=== PATIENT | female | born 1965 | race American Indian/Alaskan Native ===

== ENCOUNTER 2016-05-07 18:36 | Emergency (ER) | payer OTHER ==
[2016-05-07 18:55] VITALS: BP 153/90
[2016-05-07] MEDS ORDERED: ASPIRIN PO ONE (18:57)
--- NOTE | 2016-05-07 19:02 | Emergency Department Report ---
Chief Complaint: Chest Pain Stated Complaint: CHEST PAIN - HPI History of Present Illness: Complaining of intermittent substernal chest pain for the past 3-1/2 hours. Patient relates positive cardiac history. - Exam Vital Signs: Vital Signs 05/07/16 18:51 Temperature 98.3 F Pulse Rate 68 Respiratory 18 Rate Blood Pressure 153/90 O2 Sat by Pulse 100 Oximetry MSE screening note: Focused history and physical exam performed. Due to findings the following was ordered: ED Disposition for MSE Condition: Stable
[2016-05-07 19:46] LABS: Basophils % (Auto) 1.1 % (0.0-1.8); Eosinophils % (Auto) 1.7 % (0.0-4.3); Hematocrit 37.1 % (30.3-42.9); Hemoglobin 12.2 gm/dl (10.1-14.3); Mean Corpuscular HGB Conc 33 % (30-34); Mean Corpuscular Hemoglobin 29 pg (28-32); Mean Corpuscular Volume 87 fl (79-97); Platelet Count 300 K/mm3 (140-440); Red Blood Count 4.29 M/mm3 (3.65-5.03); Red Cell Distribution Width 14.7 % (13.2-15.2); White Blood Count 8.4 K/mm3 (4.5-11.0)
[2016-05-07 19:55] LABS: INR 0.9 (0.87-1.13)
[2016-05-07 20:07] LABS: Creatine Kinase MB 4.2 ng/mL (0.0-4.0)
[2016-05-07 20:08] LABS: Alanine Aminotransferase 15 units/L (7-56); Albumin 4.1 g/dL (3.9-5); Albumin/Globulin Ratio 1.1 %; Alkaline Phosphatase 89 units/L (35-129); Anion Gap 16 mmol/L; BUN/Creatinine Ratio 21.11; Bilirubin,Total 0.2 mg/dL (0.1-1.2); Blood Urea Nitrogen 19 mg/dL (7-17); Calcium 9.6 mg/dL (8.4-10.2); Carbon Dioxide 25 mmol/L (22-30); Chloride 101.5 mmol/L (98-107); Creatine Kinase 261 units/L (30-135); Glucose 86 mg/dL (65-100); Lipase 21 units/L (13-60); Potassium 4.3 mmol/L (3.6-5.0); Sodium 138 mmol/L (137-145); Total Protein 7.8 g/dL (6.3-8.2)
[2016-05-07 20:51] LABS: Bilirubin,Direct < 0.2 mg/dL (0-0.2)
--- NOTE | 2016-05-08 02:06 | Emergency Department Report ---
ED Chest Pain HPI - General Chief Complaint: Chest Pain Stated Complaint: CHEST PAIN Time Seen by Provider: 05/08/16 01:42 Source: patient, EMS Mode of arrival: Ambulatory Limitations: No Limitations - History of Present Illness Initial Comments: This is a 50-year-old Afro-[place] female presents to the emergency department with a complaint of lower midsternal nonradiating chest pain. The pain is been going on since and March intermittently. She went to see her primary care doctor, Dr. Barrientos, but did not get any resolution. He sent her to see a brake adjuster and she was placed on a Holter monitor that she wore from April 13 2 April 24 and she has a follow-up coming this Saturday. It is associated with some shortness of breath and she has felt "clammy" but she denies any nausea, vomiting, back pain, diaphoresis. No recent travel or sick contacts at home. She denies any history of DC, CVA, PE/DVT. She does have a past medical history of asthma and gastric ulcers. Patient is a tobacco smoker. She took an aspirin at work earlier today for symptoms prior to presentation. Severity scale (0 -10): 5 - Related Data Home Medications Medication Instructions Recorded Confirmed Last Taken buPROPion [Wellbutrin] 150 mg PO DAILY 01/09/13 02/20/15 02/19/15 traZODone [Desyrel] 50 mg PO PRN PRN 01/09/13 02/20/15 02/17/15 Buspirone HCl [busPIRone] 15 mg PO BID 02/20/15 02/20/15 02/19/15 Previous Rx's Medication Instructions Recorded Last Taken Type Naproxen [Naprosyn TAB] 500 mg PO BID PRN #30 tablet 02/20/15 Unknown Rx ALBUTEROL Inhaler [ProAir HFA 2 puff IH QID PRN #1 inhalation 09/11/15 Unknown Rx Inhaler] predniSONE [Deltasone] 20 mg PO QDAY #5 tab 09/11/15 Unknown Rx Allergies Allergy/AdvReac Type Severity Reaction Status Date / Time peanut Allergy Rash Verified 08/04/14 08:11 shellfish derived Allergy Hives Verified 08/04/14 08:11 Sulfa (Sulfonamide Allergy Rash Verified 08/04/14 08:11 Antibiotics) NATIVIDAD score - Natividad Score Age > 65: (0) No Aspirin use within the Past 7 Days: (0) No 3 or more CAD Risk Factors: (0) No 2 or more Angina events in past 24 hrs: (1) Yes Known CAD with more than 50% Stenosis: (0) No Elevated Cardiac Markers: (0) No ST Deviation Greater than 0.5mm: (0) No NATIVIDAD Score: 1 ED Review of Systems ROS: Stated complaint: CHEST PAIN Other details as noted in HPI Comment: All other systems reviewed and negative Constitutional: denies: chills, fever Eyes: denies: eye pain, eye discharge, vision change ENT: denies: ear pain, throat pain Respiratory: shortness of breath. denies: cough Cardiovascular: chest pain. denies: edema Gastrointestinal: denies: abdominal pain, nausea, diarrhea Genitourinary: denies: urgency, dysuria, discharge Musculoskeletal: denies: back pain, joint swelling, arthralgia Skin: denies: rash, lesions Neurological: denies: headache, weakness, paresthesias ED Past Medical Hx - Past Medical History Previous Medical History?: Yes Hx Psychiatric Treatment: Yes (depression and anxiety) Hx Asthma: Yes Additional medical history: ulcers, recovering addict - Surgical History Past Surgical History?: Yes Additional Surgical History: Bilateral hand surgery, right ankle surgery, C4-5 fusion, x1, LEFT SHOULDER, - Social History Smoking Status: Current Every Day Smoker Substance Use Type: Prescribed - Medications Home Medications: Home Medications Medication Instructions Recorded Confirmed Last Taken Type buPROPion [Wellbutrin] 150 mg PO DAILY 01/09/13 02/20/15 02/19/15 History traZODone [Desyrel] 50 mg PO PRN PRN 01/09/13 02/20/15 02/17/15 History Buspirone HCl [busPIRone] 15 mg PO BID 02/20/15 02/20/15 02/19/15 History Naproxen [Naprosyn TAB] 500 mg PO BID PRN #30 tablet 02/20/15 Unknown Rx ALBUTEROL Inhaler [ProAir HFA 2 puff IH QID PRN #1 inhalation 09/11/15 Unknown Rx Inhaler] predniSONE [Deltasone] 20 mg PO QDAY #5 tab 09/11/15 Unknown Rx ED Physical Exam - General Limitations: No Limitations - Other Other exam information: GENERAL: The patient is well-developed well-nourished. HEENT: Normocephalic. Atraumatic. Extraocular motions are intact. Patient has moist mucous membranes. Pupils equal reactive to light bilaterally. NECK: Supple. Trachea is mid line. CHEST/LUNGS: Clear to auscultation. There is no respiratory distress noted. Midsternal chest pain is reproducible to palpation chest wall. HEART/CARDIOVASCULAR: Regular. There is no tachycardia. There is no gallop rub or murmur. ABDOMEN: Abdomen is soft, nontender. Patient has normal bowel sounds. There is no abdominal distention. SKIN: Skin is warm and dry. NEURO: The patient is awake, alert, and oriented. The patient is cooperative. The patient has no focal neurologic deficits. The patient has normal speech and gait. Cranial nerves II through XII grossly intact. MUSCULOSKELETAL: There is no tenderness or deformity. There is no limitation range of motion. There is no evidence of acute injury. ED Course Vital Signs 05/07/16 05/08/16 18:51 01:42 Temperature 98.3 F Pulse Rate 68 Respiratory 18 18 Rate Blood Pressure 153/90 O2 Sat by Pulse 100 100 Oximetry ED Medical Decision Making - Lab Data Result diagrams: 05/07/16 19:24 05/07/16 19:24 - EKG Data -: EKG Interpreted by Me EKG shows normal: sinus rhythm (with sinus arrhythmia), axis, intervals, QRS complexes, ST-T waves Rate: normal - EKG Data When compared to previous EKG there are: previous EKG unavailable Interpretation: normal EKG - Radiology Data Radiology results: image reviewed interpreted by me: Chest x-ray did not show any acute process. Heart is normal shape and size. No effusions. No pneumothorax. No signs of pneumonia seen. - Medical Decision Making This is a 50-year-old female presents to the emergency department with some chronic chest discomfort. Patient's EKG does not show any signs of ST elevation DC, ischemia or dysrhythmia. Chest x-ray does not show any acute process. Patient's labs of thus far show negative troponins 2 and a negative d -dimer. No signs of infection. Patient is feeling better and asking for discharge home. However prior to this, the patient was asking for something for pain. A Adams was written for the patient. The patient was told what the medication was and took the medication orally. However afterwards, she mentions that she has a history of previous drug addiction. While the patient says that she does not plan to go and find any further drugs like she did in the past, I recommended and offered to give the patient Narcan to block the opiate effects. Patient refused this. Patient also wanted to leave but did not have a responsible democrat to make sure she got home. For this reason I asked the patient to stay in the emergency department for a few hours or be given Narcan. The patient set up to get a ride from the emergency department and would be met at the door of her apartment by someone else to make sure that she got and safely. Patient was wheeled out to the car and safely placed within the car. However the patient did sign out AGAINST MEDICAL ADVICE as she was told that there could be side effects of sedation from the narcotic pain medication she was given in the emergency department. Patient understands and still signed out AMA. She has an appointment with her brake adjuster on Saturday but I encouraged her to try and call and see if she could get in later today. She'll return to the ER with any return of her chest discomfort or any acute distress. - Differential Diagnosis DC, costochondritis, GERD, pneumonia Critical Care Time: No Critical care attestation.: If time is entered above; I have spent that time in minutes in the direct care of this critically ill patient, excluding procedure time. ED Disposition Clinical Impression: Chest pain Qualifiers: Chest pain type: unspecified Qualified Code(s): R07.9 - Chest pain, unspecified Disposition: LEFT AGAINST MEDICAL ADVICE Is pt being admited?: No Condition: Stable Instructions: Chest Pain (ED) Additional Instructions: Please follow-up with your brake adjuster later today. Return to the emergency department with any worsening of her symptoms or any acute distress. Referrals: PRIMARY CARE, [Primary Care Provider] - 3-5 Days Forms: Work/School Release Form(ED) Time of Disposition: 03:42
[2016-05-08] MEDS ORDERED: NORCO 5/325 PO ONE (02:52)
[2016-05-08 03:08] LABS: Bacteria,Urine 1+ /HPF (Negative); Bilirubin,Urine NEG (Negative); Blood,Urine NEG (Negative); Ketones,Urine NEG (Negative); Leukocyte Esterase,Urine TR (Negative); Mucus,Urine FEW /HPF; Nitrite,Urine NEG (Negative); Protein,Urine <15 mg/dL mg/dL (Negative); Urobilinogen,Urine < 2.0 mg/dL (<2.0)
--- NOTE | 2016-05-08 08:43 | XRay Report ---
CHEST ONE VIEW INDICATION: Chest pain. History of asthma and slight heart murmur. COMPARISON: 09/11/2015. FINDINGS: Portable, single, frontal chest radiograph demonstrates normal cardiomediastinal silhouette. Clear lungs. Lower cervical fusion hardware partially imaged. CONCLUSION: No acute disease in the chest, stable. Thank you for the opportunity to participate in this patient's care.
== END 2016-05-08 03:48 | disposition left against medical advice (07) ==
LOC: ED 18:36
DX: R07.9 Chest pain, unspecified (principal); F32.9 Major depressive disorder, single episode, unspecified; F41.9 Anxiety disorder, unspecified; J45.909 Unspecified asthma, uncomplicated; F17.200 Nicotine dependence, unspecified, uncomplicated; Z91.010 Allergy to peanuts; Z91.013 Allergy to seafood; Z88.2 Allergy status to sulfonamides
CPT/HCPCS: 36415; 71010; 80053; 80074; 80162; 81001; 82550; 82553; 83690; 84484; 85025; 85379; 85610; 93005; 93010; 99285

== ENCOUNTER 2016-06-10 09:07 | Emergency (ER) | payer OTHER ==
[2016-06-10 09:24] VITALS: BP 125/58
[2016-06-10] MEDS ORDERED: TYLENOL #3 PO ONE (09:54)
[2016-06-10] MEDS ORDERED: DUONEB 0.5 MG-3 MG/3 ML SOLN IH ONE (09:54)
[2016-06-10] MEDS ORDERED: PROVENTIL IH ONE (10:34)
--- NOTE | 2016-06-10 11:59 | Emergency Department Report ---
Entered by MIGUEL SUGGS, acting as scribe for ANGELLA ANGEL PA. ED General Adult HPI - General Chief complaint: Adult Asthma Stated complaint: ASTHMA/COUGHING Time Seen by Provider: 06/10/16 09:48 Source: patient Mode of arrival: Ambulatory Limitations: No Limitations - History of Present Illness Initial comments: 50 y/o female with PMHx asthma presents to ED c/o cough since 4 days ago. Despite administering albuterol MDI at home, pt experienced no relief. Pt endorses tobacco usage. Pt reports associated rhinorrhea and sore throat described as itching in quality secondary to coughing, with left ear pain since 2 days ago. She denies fever, nausea, vomiting, but reports chills. 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 She notes recent new prescription of a Beta Bethany on , with exacerbation of her asthma since. No additional complaints. MD Complaint: asthma exacerbation Onset/Timin -: days(s) Consistency: constant Improves with: none Worsens with: other (pollen, dust) Associated Symptoms: fever/chills (reports chills, denies fever) Treatments Prior to Arrival: other (albuterol metered dose inhaler) - Related Data Home Medications Medication Instructions Recorded Confirmed Last Taken buPROPion [Wellbutrin] 150 mg PO DAILY 01/09/13 02/20/15 02/19/15 traZODone [Desyrel] 50 mg PO PRN PRN 01/09/13 02/20/15 02/17/15 Buspirone HCl [busPIRone] 15 mg PO BID 02/20/15 02/20/15 02/19/15 Previous Rx's Medication Instructions Recorded Last Taken Type Naproxen [Naprosyn TAB] 500 mg PO BID PRN #30 tablet 02/20/15 Unknown Rx ALBUTEROL Inhaler [ProAir HFA 2 puff IH QID PRN #1 inhalation 06/10/16 Unknown Rx Inhaler] Albuterol Sulfate [Albuterol 0.63% 0.63 mg IH TID PRN #1 box 06/10/16 Unknown Rx NEBS] predniSONE [Deltasone] 20 mg PO QDAY #5 tab 06/10/16 Unknown Rx Allergies Allergy/AdvReac Type Severity Reaction Status Date / Time peanut Allergy Rash Verified 08/04/14 08:11 shellfish derived Allergy Hives Verified 08/04/14 08:11 Sulfa (Sulfonamide Allergy Rash Verified 08/04/14 08:11 Antibiotics) ED Review of Systems Comment: All other systems reviewed and negative Constitutional: chills. denies: fever ENT: ear pain (left), throat pain (sore throat) Respiratory: cough, shortness of breath, wheezing Gastrointestinal: denies: nausea, vomiting ED Past Medical Hx - Past Medical History Previous Medical History?: Yes Hx Psychiatric Treatment: Yes (depression and anxiety) Hx Asthma: Yes Additional medical history: ulcers, recovering addict, palpitations - Surgical History Past Surgical History?: Yes Additional Surgical History: Bilateral hand surgery, right ankle surgery, C4-5 fusion, x1, LEFT SHOULDER, - Social History Smoking Status: Current Every Day Smoker Substance Use Type: Prescribed - Medications Home Medications: Home Medications Medication Instructions Recorded Confirmed Last Taken Type buPROPion [Wellbutrin] 150 mg PO DAILY 01/09/13 02/20/15 02/19/15 History traZODone [Desyrel] 50 mg PO PRN PRN 01/09/13 02/20/15 02/17/15 History Buspirone HCl [busPIRone] 15 mg PO BID 02/20/15 02/20/15 02/19/15 History Naproxen [Naprosyn TAB] 500 mg PO BID PRN #30 tablet 02/20/15 Unknown Rx ALBUTEROL Inhaler [ProAir HFA 2 puff IH QID PRN #1 inhalation 06/10/16 Unknown Rx Inhaler] Albuterol Sulfate [Albuterol 0.63% 0.63 mg IH TID PRN #1 box 06/10/16 Unknown Rx NEBS] predniSONE [Deltasone] 20 mg PO QDAY #5 tab 06/10/16 Unknown Rx ED Physical Exam - General Limitations: No Limitations - Other Other exam information: GENERAL: Patient is alert and oriented x 3. No apparent distress, normal gait, atraumatic. HEAD: Head is normocephalic and atraumatic. EYES: Extraocular movements are intact. Pupils are equal, round, and reactive to light and accommodation. EARS: Symmetrical, atraumatic, non tender, ear canal clear with moderate cerumen , tympanic membrane non inflamed. Gross auditory nml bilaterally. NOSE: Nose symmetrical, nontender. Nares appeared normal. MOUTH:Mouth is without lesions. Mucous membranes are dry. Uvula midline. Tongue not elevated. Posterior pharynx clear, no exudate or lesions. Tonsils are not erythematous or swollen. Patent airway. NECK: Supple. Non edematous, no carotid bruits. No lymphadenopathy or thyromegaly. LUNGS: Symmetrical with respiration. Bilateral expiratory wheezing noted. HEART: Regular rate and rhythm with normal S1/S2 present. No murmurs, rubs, or gallops. SKIN: Warm and dry. No lesions, ulceration or induration present PSYCHIATRIC: Mood is congruent with affect. Denies suicidal or homicidal ideations. ED Course Vital Signs 06/10/16 06/10/16 09:20 10:08 Temperature 98.1 F Pulse Rate 67 Respiratory 22 22 Rate Blood Pressure 125/58 O2 Sat by Pulse 94 Oximetry - Reevaluation(s) Reevaluation #1: 06/10/16 11:54 Patient reports he feels much better after having the second dose of albuterol. ED Medical Decision Making - Medical Decision Making 50 year old female patient presents today with asthma exacerbation, noting cough , shortness of breath, wheezing, and chills. Patient was administered DuoNeb, Solu-medrol, and Tylenol in ED. Symptoms have improved. Discussed with patient to discontinue Beta Bethany for one week as beta blockers can exacerbate asthma. Patient advised to follow up with primary care provider and advise provider that beta bethany was discontinued by ED. Patient is in no acute distress at this time. She will be discharged home with prescription for Albuterol nebulizer refills and Albuterol metered dose inhaler. She is encouraged to return to the emergency room for any worsening symptoms. ED Disposition Clinical Impression: Asthma Qualifiers: Asthma severity: unspecified severity Asthma complication type: with acute exacerbation Qualified Code(s): J45.901 - Unspecified asthma with (acute) exacerbation Disposition: DISCHARGED TO HOME OR SELFCARE Is pt being admited?: No Does the pt Need Aspirin: No Condition: Stable Instructions: Asthma (ED) Additional Instructions: Please take prescriptions as advised. Discontinue your recently prescribed Beta Bethany for 1 week and follow up with your primary care provider to discuss changing your palpitation medication. Prescriptions: ALBUTEROL Inhaler [ProAir HFA Inhaler] 2 puff IH QID PRN #1 inhalation PRN Reason: Shortness Of Breath Albuterol Sulfate [Albuterol 0.63% NEBS] 0.63 mg IH TID PRN #1 box PRN Reason: Wheezing predniSONE [Deltasone] 20 mg PO QDAY #5 tab Referrals: PRIMARY CARE,MD [Primary Care Provider] - 3-5 Days Forms: Work/School Release Form(ED) This documentation as recorded by the IFEANYI craig AHSAN,accurately reflects the service I personally performed and the decisions made by ,ANGELLA ANGEL PA.
== END 2016-06-10 12:16 | disposition home or self-care (01) ==
LOC: ED 09:07
DX: J45.901 Unspecified asthma with (acute) exacerbation (principal); F32.9 Major depressive disorder, single episode, unspecified; F41.9 Anxiety disorder, unspecified; F17.200 Nicotine dependence, unspecified, uncomplicated; Z88.2 Allergy status to sulfonamides; Z91.010 Allergy to peanuts; Z91.013 Allergy to seafood
CPT/HCPCS: 94640; 96372; 99283; J2920

== ENCOUNTER 2016-07-30 11:45 | Emergency (ER) | payer OTHER ==
[2016-07-30 12:05] VITALS: BP 142/65
--- NOTE | 2016-07-30 12:06 | Emergency Department Report ---
Chief Complaint: Chest Pain Stated Complaint: CHEST PAIN Time Seen by Provider: 07/30/16 12:03 - HPI History of Present Illness: PT c/o L sided cw pain that started today PT states she works for [employer] and does a lot of lifting - ROS Review of Systems: + chest wall pain - abd pain - Exam Vital Signs: Vital Signs 07/30/16 11:58 Temperature 98.7 F Pulse Rate 54 L Respiratory 18 Rate Blood Pressure 142/65 O2 Sat by Pulse 100 Oximetry Physical Exam: obese female, chest wall ttp MSE screening note: Focused history and physical exam performed. Due to findings the following was ordered: labs, xr, ekg ED Disposition for MSE Condition: Stable
[2016-07-30 12:27] LABS: Basophils % (Auto) 0.6 % (0.0-1.8); Eosinophils % (Auto) 3.4 % (0.0-4.3); Hemoglobin 11.9 gm/dl (10.1-14.3); Mean Corpuscular HGB Conc 33 % (30-34); Mean Corpuscular Hemoglobin 29 pg (28-32); Mean Corpuscular Volume 87 fl (79-97); Platelet Count 264 K/mm3 (140-440); Red Blood Count 4.13 M/mm3 (3.65-5.03); White Blood Count 6.3 K/mm3 (4.5-11.0)
--- NOTE | 2016-07-30 12:55 | XRay Report ---
CHEST 2 VIEWS INDICATION: Chest pain. COMPARISON: 05/07/2016. FINDINGS: PA and lateral chest radiographs demonstrate normal cardiomediastinal silhouette. Clear lungs. Stable demineralized bones, mid thoracic spine degenerative changes and partially imaged lower cervical fusion hardware. CONCLUSION: No acute disease in the chest. Thank you for the opportunity to participate in this patient's care.
[2016-07-30 13:23] LABS: Alanine Aminotransferase 12 units/L (7-56); Albumin/Globulin Ratio 1.2 %; Alkaline Phosphatase 83 units/L (35-129); Anion Gap 14 mmol/L; BUN/Creatinine Ratio 16.66; Blood Urea Nitrogen 15 mg/dL (7-17); Calcium 9.4 mg/dL (8.4-10.2); Carbon Dioxide 29 mmol/L (22-30); Chloride 101.3 mmol/L (98-107); Glucose 80 mg/dL (65-100); Potassium 4.6 mmol/L (3.6-5.0); Sodium 140 mmol/L (137-145); Total Protein 7.3 g/dL (6.3-8.2)
--- NOTE | 2016-08-04 10:55 | ED Elopement Review ---
ED Pt Elopement review - Results review Lab results: Laboratory Tests 07/30/16 07/30/16 07/30/16 12:06 12:45 12:45 WBC 6.3 RBC 4.13 Hgb 11.9 Hct 36.0 MCV 87 MCH 29 MCHC 33 RDW 15.0 Plt Count 264 Lymph % (Auto) 50.6 H Story % (Auto) 7.5 H Eos % (Auto) 3.4 Baso % (Auto) 0.6 Lymph # 3.2 Story # 0.5 Eos # 0.2 Baso # 0.0 Seg Neutrophils % 37.9 L Seg Neutrophils # 2.4 Sodium 140 Potassium 4.6 Chloride 101.3 Carbon Dioxide 29 Anion Gap 14 BUN 15 Creatinine 0.9 Estimated GFR > 60 BUN/Creatinine Ratio 16.66 Glucose 80 Calcium 9.4 Total Bilirubin 0.20 AST 15 ALT 12 Alkaline Phosphatase 83 Total Creatine Kinase 118 Troponin T < 0.010 Total Protein 7.3 Albumin 4.0 Albumin/Globulin Ratio 1.2 - Call Back decision Pt Call Back Decision: No action required
== END 2016-07-30 12:15 | disposition left against medical advice (07) ==
LOC: ED 11:45
DX: R07.89 Other chest pain (principal); Z53.21 Procedure and treatment not carried out due to patient leaving prior to being seen by health care provider
CPT/HCPCS: 36415; 71020; 80053; 82550; 84484; 85025; 93005; 93010

== ENCOUNTER 2016-09-23 09:13 | Inpatient (IN) | payer OTHER ==
[2016-09-23 09:37] LABS: Hematocrit 37.2 % (30.3-42.9); Hemoglobin 11.9 gm/dl (10.1-14.3); Mean Corpuscular HGB Conc 32 % (30-34); Mean Corpuscular Hemoglobin 28 pg (28-32); Mean Corpuscular Volume 88 fl (79-97); Platelet Count 314 K/mm3 (140-440); Red Blood Count 4.22 M/mm3 (3.65-5.03); Red Cell Distribution Width 15.1 % (13.2-15.2); White Blood Count 6.3 K/mm3 (4.5-11.0)
[2016-09-23 09:51] LABS: Anion Gap 15 mmol/L; BUN/Creatinine Ratio 15.55; Blood Urea Nitrogen 14 mg/dL (7-17); Calcium 9.2 mg/dL (8.4-10.2); Carbon Dioxide 28 mmol/L (22-30); Glucose 53 mg/dL (65-100); Sodium 141 mmol/L (137-145)
--- NOTE | 2016-09-23 10:24 | Emergency Department Report ---
ED Chest Pain HPI - General Chief Complaint: Chest Pain Stated Complaint: CHEST PAIN/SHOULDER/RT HAND/ARM PAIN Time Seen by Provider: 09/23/16 10:21 Source: patient Mode of arrival: Ambulatory Limitations: No Limitations - History of Present Illness Initial Comments: The patient has been to this facility multiple times for evaluation of chest pain. She states that she is had a normal echo stress test bilateral heart in the past but not recently. She is concerned because she has had continuing episodes of chest pain. These episodes are associated with some tightness in her left chest no radiation. She denied any shoulder or arm pain to me associated with chest pain. But she states she has some muscle cramps sometimes. May be this accounts for her triage note that apparently mentioned some right upper extremity pain. She is suffering from this now. She's had no recent travel. She denies leg pain or swelling. She denies cough. She states that she sweats with these episodes of chest pain and sometimes gets short of breath. She is not currently having chest pain at this time. MD Complaint: chest pain -: Gradual Onset: during rest Pain Location: left chest Pain Radiation: none Severity: moderate Quality: tightness, aching Consistency: intermittent, now resolved Improves With: nothing Worsens With: nothing re: nausea, dyspnea, other (sweating) Other Symptoms: denies: cough, fever, syncope Treatments Prior to Arrival: none - Related Data Home Medications Medication Instructions Recorded Confirmed Last Taken buPROPion [Wellbutrin] 150 mg PO DAILY 01/09/13 02/20/15 02/19/15 traZODone [Desyrel] 50 mg PO PRN PRN 01/09/13 02/20/15 02/17/15 Buspirone HCl [busPIRone] 15 mg PO BID 02/20/15 02/20/15 02/19/15 Previous Rx's Medication Instructions Recorded Last Taken Type Naproxen [Naprosyn TAB] 500 mg PO BID PRN #30 tablet 02/20/15 Unknown Rx ALBUTEROL Inhaler [ProAir HFA 2 puff IH QID PRN #1 inhalation 06/10/16 Unknown Rx Inhaler] Albuterol Sulfate [Albuterol 0.63% 0.63 mg IH TID PRN #1 box 06/10/16 Unknown Rx NEBS] predniSONE [Deltasone] 20 mg PO QDAY #5 tab 06/10/16 Unknown Rx Allergies Allergy/AdvReac Type Severity Reaction Status Date / Time peanut Allergy Rash Verified 08/04/14 08:11 shellfish derived Allergy Hives Verified 08/04/14 08:11 Sulfa (Sulfonamide Allergy Rash Verified 08/04/14 08:11 Antibiotics) Heart Score - HEART Score History: Slightly suspicious EKG: Normal Age: 45-65 Risk factors: 1-2 risk factors Troponin: < normal limit HEART Score: 2 - Critical Actions Critical Actions: 0-3 pts:0.9-1.7%risk of adverse cardiac event.Candidate for discharge ED Review of Systems ROS: Stated complaint: CHEST PAIN/SHOULDER/RT HAND/ARM PAIN Other details as noted in HPI Constitutional: denies: chills, fever Eyes: denies: eye pain, eye discharge, vision change ENT: denies: ear pain, throat pain Respiratory: shortness of breath. denies: cough, wheezing Cardiovascular: chest pain. denies: palpitations Endocrine: no symptoms reported Gastrointestinal: denies: abdominal pain, nausea, diarrhea Genitourinary: denies: urgency, dysuria, discharge Musculoskeletal: denies: back pain, joint swelling, arthralgia Skin: denies: rash, lesions Neurological: denies: headache, weakness, paresthesias Psychiatric: denies: anxiety, depression Hematological/Lymphatic: denies: easy bleeding, easy bruising ED Past Medical Hx - Past Medical History Previous Medical History?: Yes Hx Psychiatric Treatment: Yes (depression and anxiety) Hx Asthma: Yes Additional medical history: ulcers, recovering addict, palpitations - Surgical History Past Surgical History?: Yes Additional Surgical History: Bilateral hand surgery, right ankle surgery, C4-5 fusion, x1, LEFT SHOULDER, - Social History Smoking Status: Former Smoker Substance Use Type: None - Medications Home Medications: Home Medications Medication Instructions Recorded Confirmed Last Taken Type buPROPion [Wellbutrin] 150 mg PO DAILY 01/09/13 02/20/15 02/19/15 History traZODone [Desyrel] 50 mg PO PRN PRN 01/09/13 02/20/15 02/17/15 History Buspirone HCl [busPIRone] 15 mg PO BID 02/20/15 02/20/15 02/19/15 History Naproxen [Naprosyn TAB] 500 mg PO BID PRN #30 tablet 02/20/15 Unknown Rx ALBUTEROL Inhaler [ProAir HFA 2 puff IH QID PRN #1 inhalation 06/10/16 Unknown Rx Inhaler] Albuterol Sulfate [Albuterol 0.63% 0.63 mg IH TID PRN #1 box 06/10/16 Unknown Rx NEBS] predniSONE [Deltasone] 20 mg PO QDAY #5 tab 06/10/16 Unknown Rx ED Physical Exam - General Limitations: No Limitations General appearance: alert, in no apparent distress - Head Head exam: Present: atraumatic, normocephalic - Eye Eye exam: Present: normal appearance - ENT ENT exam: Present: mucous membranes moist - Neck Neck exam: Present: normal inspection - Respiratory Respiratory exam: Present: normal lung sounds bilaterally. Absent: respiratory distress - Cardiovascular Cardiovascular Exam: Present: regular rate, normal rhythm. Absent: systolic murmur, diastolic murmur, rubs, gallop - GI/Abdominal GI/Abdominal exam: Present: soft, normal bowel sounds. Absent: distended, tenderness, guarding, rebound, rigid - Extremities Exam Extremities exam: Present: normal inspection - Back Exam Back exam: Present: normal inspection - Neurological Exam Neurological exam: Present: alert, oriented X3, CN II-XII intact. Absent: motor sensory deficit - Psychiatric Psychiatric exam: Present: normal affect, normal mood - Skin Skin exam: Present: warm, dry, intact, normal color. Absent: rash ED Course Vital Signs 09/23/16 09/23/16 09/23/16 09:25 09:48 09:50 Temperature 98.6 F Pulse Rate 57 L 59 L Respiratory 18 18 15 Rate Blood Pressure 139/72 124/71 O2 Sat by Pulse 100 100 Oximetry 09/23/16 09/23/16 09/23/16 10:00 10:10 10:20 Temperature Pulse Rate 64 61 66 Respiratory 16 18 17 Rate Blood Pressure 126/66 126/66 139/73 O2 Sat by Pulse 99 100 100 Oximetry 09/23/16 09/23/16 09/23/16 10:30 10:40 10:50 Temperature Pulse Rate 62 69 53 L Respiratory 12 16 17 Rate Blood Pressure 149/64 149/64 145/75 O2 Sat by Pulse 100 98 100 Oximetry - Reevaluation(s) Reevaluation #1: The patient is admitted to telemetry by for further care and evaluation in stable condition. 09/23/16 11:27 Reevaluation #2: Patient states that she did not eat this morning. Her blood glucose was 53. A repeat Accu-Chek was about 75. The patient was fed thereafter. She was awake alert and fully ambulatory at all times. 09/23/16 11:28 NATIVIDAD score - Ntaividad Score Age > 65: (0) No Aspirin use within the Past 7 Days: (0) No 3 or more CAD Risk Factors: (0) No 2 or more Angina events in past 24 hrs: (1) Yes Known CAD with more than 50% Stenosis: (0) No Elevated Cardiac Markers: (0) No ST Deviation Greater than 0.5mm: (0) No NATIVIDAD Score: 1 ED Medical Decision Making - Lab Data Result diagrams: 09/23/16 09:26 09/23/16 09:26 Laboratory Results - last 24 hr 09/23/16 09/23/16 09:26 09:26 WBC 6.3 RBC 4.22 Hgb 11.9 Hct 37.2 MCV 88 MCH 28 MCHC 32 RDW 15.1 Plt Count 314 Lymph % (Auto) Underwriting Support Manager Seg Neutrophils % Underwriting Support Manager Sodium 141 Potassium 4.0 Chloride 102.0 Carbon Dioxide 28 Anion Gap 15 BUN 14 Creatinine 0.9 Estimated GFR > 60 BUN/Creatinine Ratio 15.55 Glucose 53 L Calcium 9.2 Troponin T < 0.010 - EKG Data -: EKG Interpreted by Me EKG shows normal: sinus rhythm, axis, intervals, QRS complexes, ST-T waves Rate: normal - EKG Data Interpretation: no acute changes, other (tiny rsr in Vs non specific) - Radiology Data interpreted by me: Chest x-ray no acute process Critical care attestation.: If time is entered above; I have spent that time in minutes in the direct care of this critically ill patient, excluding procedure time. ED Disposition Clinical Impression: Hypoglycemia Chest pain Qualifiers: Chest pain type: unspecified Qualified Code(s): R07.9 - Chest pain, unspecified Disposition: OP ADMIT IP TO THIS HOSP Is pt being admited?: No Does the pt Need Aspirin: No Condition: Stable Instructions: Chest Pain (ED) Referrals: PRIMARY CARE, [Primary Care Provider] - 3-5 Days Time of Disposition: :30
[2016-09-23] MEDS ORDERED: ASPIRIN PO ONE (10:35)
[2016-09-23] MEDS ORDERED: NORCO 5/325 PO ONE (10:35)
--- NOTE | 2016-09-23 10:57 | XRay Report ---
Single view chest: Compared to 07/30/16. History: Hypertension. Findings: Normal cardiomediastinal silhouette. Trachea is midline. No consolidation, pneumothorax or pleural effusion. Impression: No acute cardiopulmonary findings.
[2016-09-23 11:13] LABS: Anisocytosis 1+; Basophils % (Manual) 0 % (0.0-1.8); Blastocytes % (Manual) 0 %
[2016-09-23 11:14] LABS: Diff Status Complete; Platelet Estimate Consistent w Auto
[2016-09-23 11:16] LABS: INR 0.99 (0.87-1.13)
[2016-09-23 11:17] LABS: Partial Thromboplastin Time 33.3 Sec. (24.2-36.6)
[2016-09-23 11:35] LABS: Alanine Aminotransferase 13 units/L (7-56); Albumin/Globulin Ratio 1.3 %; Alkaline Phosphatase 85 units/L (35-129); Total Protein 7.1 g/dL (6.3-8.2)
[2016-09-23 11:39] LABS: Bilirubin,Direct < 0.2 mg/dL (0-0.2)
[2016-09-23] MEDS ORDERED: MILK OF MAGNESIA PO PRN (20:57)
[2016-09-23] MEDS ORDERED: TYLENOL PO PRN (20:57)
[2016-09-23] MEDS ORDERED: DULCOLAX PR PRN (20:57)
[2016-09-23] MEDS ORDERED: ZOFRAN IV PRN (20:57)
--- NOTE | 2016-09-23 20:57 | History and Physical Report ---
History of Present Illness Date of examination: 09/23/16 Date of admission: 09/23/16 11:32 Chief complaint: Recurrent Chest pain 1 week History of present illness: - History of Present Illness Initial Comments: The patient has been to this facility multiple times for evaluation of chest pain. She states that she is had a normal echo stress test bilateral heart in the past but not recently. She is concerned because she has had continuing episodes of chest pain. These episodes are associated with some tightness in her left chest no radiation. She denied any shoulder or arm pain to me associated with chest pain. But she states she has some muscle cramps sometimes. May be this accounts for her triage note that apparently mentioned some right upper extremity pain. She is suffering from this now. She's had no recent travel. She denies leg pain or swelling. She denies cough. She states that she sweats with these episodes of chest pain and sometimes gets short of breath. She is not currently having chest pain at this time. MD Complaint: chest pain -: Gradual Onset: during rest Pain Location: left chest Pain Radiation: none Severity: moderate Quality: tightness, aching Consistency: intermittent, now resolved Improves With: nothing Worsens With: nothing re: nausea, dyspnea, other (sweating) Other Symptoms: denies: cough, fever, syncope Treatments Prior to Arrival: none - - Past Medical History Previous Medical History?: Yes Hx Psychiatric Treatment: Yes (depression and anxiety) Hx Asthma: Yes Additional medical history: ulcers, recovering addict, palpitations - Surgical History Past Surgical History?: Yes Additional Surgical History: Bilateral hand surgery, right ankle surgery, C4-5 fusion, x1, LEFT SHOULDER, - Social History Smoking Status: Former Smoker Substance Use Type: None Fam Hx Htn - Medications Home Medications: Home Medications Medication Instructions Recorded Confirmed Last Taken Type buPROPion [Wellbutrin] 150 mg PO DAILY 01/09/13 02/20/15 02/19/15 History traZODone [Desyrel] 50 mg PO PRN PRN 01/09/13 02/20/15 02/17/15 History Buspirone HCl [busPIRone] 15 mg PO BID 02/20/15 02/20/15 02/19/15 History Naproxen [Naprosyn TAB] 500 mg PO BID PRN #30 tablet 02/20/15 Unknown Rx ALBUTEROL Inhaler [ProAir HFA 2 puff IH QID PRN #1 inhalation 06/10/16 Unknown Rx Inhaler] Albuterol Sulfate [Albuterol 0.63% 0.63 mg IH TID PRN #1 box 06/10/16 Unknown Rx NEBS] predniSONE [Deltasone] 20 mg PO QDAY #5 tab 06/10/16 Unknown Rx Review of Systems Stated complaint: CHEST PAIN/SHOULDER/RT HAND/ARM PAIN Other details as noted in HPI Constitutional: denies: chills, fever Eyes: denies: eye pain, eye discharge, vision change ENT: denies: ear pain, throat pain Respiratory: shortness of breath. denies: cough, wheezing Cardiovascular: chest pain. denies: palpitations Endocrine: no symptoms reported Gastrointestinal: denies: abdominal pain, nausea, diarrhea Genitourinary: denies: urgency, dysuria, discharge Musculoskeletal: denies: back pain, joint swelling, arthralgia Skin: denies: rash, lesions Neurological: denies: headache, weakness, paresthesias Psychiatric: denies: anxiety, depression Hematological/Lymphatic: denies: easy bleeding, easy bruisi Medications and Allergies Allergies Allergy/AdvReac Type Severity Reaction Status Date / Time peanut Allergy Rash Verified 08/04/14 08:11 shellfish derived Allergy Hives Verified 08/04/14 08:11 Sulfa (Sulfonamide Allergy Rash Verified 08/04/14 08:11 Antibiotics) Home Medications Medication Instructions Recorded Confirmed Last Taken Type buPROPion [Wellbutrin] 150 mg PO DAILY 01/09/13 09/23/16 2 Days Ago History traZODone [Desyrel] 50 mg PO PRN PRN 01/09/13 09/23/16 2 Days Ago History Buspirone HCl [busPIRone] 15 mg PO BID 02/20/15 09/23/16 2 Days Ago History Naproxen [Naprosyn TAB] 500 mg PO BID PRN #30 tablet 02/20/15 09/23/16 Unknown Rx ALBUTEROL Inhaler [ProAir HFA 2 puff IH QID PRN #1 inhalation 06/10/16 09/23/16 2 Days Ago Rx Inhaler] Albuterol Sulfate [Albuterol 0.63% 0.63 mg IH TID PRN #1 box 06/10/16 09/23/16 2 Days Ago Rx NEBS] predniSONE [Deltasone] 20 mg PO QDAY #5 tab 06/10/16 09/23/16 Unknown Rx Active Meds: Active Medications Pneumococcal Polyvalent Vaccine (Pneumovax 23) 0.5 ml IM .ONCE ONE Stop: 09/24/16 12:01 Exam - Physical Exam Narrative exam: Lying comfortably - Constitutional Vitals: Temp Pulse Resp BP Pulse Ox 98.2 F 58 L 100 H 118/58 100 09/23/16 17:00 09/23/16 17:00 09/23/16 17:00 09/23/16 17:00 09/23/16 17:00 General appearance: Present: no acute distress, well-nourished - EENT Eyes: Present: PERRL ENT: hearing intact, clear oral mucosa - Neck Neck: Present: supple, normal ROM - Respiratory Respiratory effort: normal Respiratory: bilateral: CTA - Cardiovascular Heart rate: 80 Rhythm: regular Heart Sounds: Present: S1 & S2. Absent: rub, click - Extremities Extremities: no ischemia, pulses intact, pulses symmetrical, No edema Peripheral Pulses: within normal limits - Abdominal General gastrointestinal: Present: soft, non-tender, non-distended, normal bowel sounds Female genitourinary: Present: normal - Integumentary Integumentary: Present: clear, warm, dry - Musculoskeletal Musculoskeletal: gait normal, strength equal bilaterally - Psychiatric Psychiatric: appropriate mood/affect, intact judgment & insight - Neurologic Neurologic: CNII-XII intact, moves all extremities - Allied Health Allied health notes reviewed: nursing, case management Results - Labs CBC & Chem 7: 09/23/16 09:26 09/24/16 05:04 Labs: Laboratory Last Values WBC 6.3 K/mm3 (4.5-11.0) 09/23/16 09:26 RBC 4.22 M/mm3 (3.65-5.03) 09/23/16 09:26 Hgb 11.9 gm/dl (10.1-14.3) 09/23/16 09:26 Hct 37.2 % (30.3-42.9) 09/23/16 09:26 MCV 88 fl (79-97) 09/23/16 09:26 MCH 28 pg (28-32) 09/23/16 09:26 MCHC 32 % (30-34) 09/23/16 09:26 RDW 15.1 % (13.2-15.2) 09/23/16 09:26 Plt Count 314 K/mm3 (140-440) 09/23/16 09:26 Lymph % (Auto) Recycling Technician 09/23/16 09:26 Add Manual Diff Complete 09/23/16 09:26 Total Counted 100 09/23/16 09:26 Seg Neutrophils % Recycling Technician 09/23/16 09:26 Seg Neuts % (Manual) 28.0 % (40.0-70.0) L 09/23/16 09:26 Band Neutrophils % 0 % 09/23/16 09:26 Lymphocytes % (Manual) 62.0 % (13.4-35.0) H 09/23/16 09:26 Reactive Lymphs % (Man) 0 % 09/23/16 09:26 Monocytes % (Manual) 5.0 % (0.0-7.3) 09/23/16 09:26 Eosinophils % (Manual) 5.0 % (0.0-4.3) H 09/23/16 09:26 Basophils % (Manual) 0 % (0.0-1.8) 09/23/16 09:26 Metamyelocytes % 0 % 09/23/16 09:26 Myelocytes % 0 % 09/23/16 09:26 Promyelocytes % 0 % 09/23/16 09:26 Blast Cells % 0 % 09/23/16 09:26 Nucleated RBC % Not Reportable 09/23/16 09:26 Seg Neutrophils # Man 1.8 K/mm3 (1.8-7.7) 09/23/16 09:26 Band Neutrophils # 0.0 K/mm3 09/23/16 09:26 Lymphocytes # (Manual) 3.9 K/mm3 (1.2-5.4) 09/23/16 09:26 Abs React Lymphs (Man) 0.0 K/mm3 09/23/16 09:26 Monocytes # (Manual) 0.3 K/mm3 (0.0-0.8) 09/23/16 09:26 Eosinophils # (Manual) 0.3 K/mm3 (0.0-0.4) 09/23/16 09:26 Basophils # (Manual) 0.0 K/mm3 (0.0-0.1) 09/23/16 09:26 Metamyelocytes # 0.0 K/mm3 09/23/16 09:26 Myelocytes # 0.0 K/mm3 09/23/16 09:26 Promyelocytes # 0.0 K/mm3 09/23/16 09:26 Blast Cells # 0.0 K/mm3 09/23/16 09:26 WBC Morphology Not Reportable 09/23/16 09:26 Hypersegmented Neuts Not Reportable 09/23/16 09:26 Hyposegmented Neuts Not Reportable 09/23/16 09:26 Hypogranular Neuts Not Reportable 09/23/16 09:26 Smudge Cells Not Reportable 09/23/16 09:26 Toxic Granulation Not Reportable 09/23/16 09:26 Toxic Vacuolation Not Reportable 09/23/16 09:26 Dohle Bodies Not Reportable 09/23/16 09:26 Pelger-Huet Anomaly Not Reportable 09/23/16 09:26 Brian Rods Not Reportable 09/23/16 09:26 Platelet Estimate Consistent w auto 09/23/16 09:26 Clumped Platelets Not Reportable 09/23/16 09:26 Plt Clumps, EDTA Not Reportable 09/23/16 09:26 Large Platelets Not Reportable 09/23/16 09:26 Giant Platelets Not Reportable 09/23/16 09:26 Platelet Satelliting Not Reportable 09/23/16 09:26 Plt Morphology Comment Not Reportable 09/23/16 09:26 RBC Morphology Not Reportable 09/23/16 09:26 Dimorphic RBCs Not Reportable 09/23/16 09:26 Polychromasia Not Reportable 09/23/16 09:26 Hypochromasia Not Reportable 09/23/16 09:26 Poikilocytosis Not Reportable 09/23/16 09:26 Anisocytosis 1+ 09/23/16 09:26 Microcytosis Not Reportable 09/23/16 09:26 Macrocytosis Not Reportable 09/23/16 09:26 Spherocytes Not Reportable 09/23/16 09:26 Pappenheimer Bodies Not Reportable 09/23/16 09:26 Sickle Cells Not Reportable 09/23/16 09:26 Target Cells Not Reportable 09/23/16 09:26 Tear Drop Cells Not Reportable 09/23/16 09:26 Ovalocytes Not Reportable 09/23/16 09:26 Helmet Cells Not Reportable 09/23/16 09:26 [place] Bodies Not Reportable 09/23/16 09:26 [place] Rings Not Reportable 09/23/16 09:26 Brittany Cells Not Reportable 09/23/16 09:26 Bite Cells Not Reportable 09/23/16 09:26 Crenated Cell Not Reportable 09/23/16 09:26 Elliptocytes Not Reportable 09/23/16 09:26 Acanthocytes (Spur) Not Reportable 09/23/16 09:26 Rouleaux Not Reportable 09/23/16 09:26 Hemoglobin C Crystals Not Reportable 09/23/16 09:26 Schistocytes Not Reportable 09/23/16 09:26 Malaria parasites Not Reportable 09/23/16 09:26 Armando Bodies Not Reportable 09/23/16 09:26 Hem Pathologist Commnt No 09/23/16 09:26 PT 13.0 Sec. (12.2-14.9) 09/23/16 10:37 INR 0.99 (0.87-1.13) 09/23/16 10:37 APTT 33.3 Sec. (24.2-36.6) 09/23/16 10:37 D-Dimer 206.84 ng/mlDDU (0-234) 09/23/16 10:37 Sodium 141 mmol/L (137-145) 09/23/16 09:26 Potassium 4.0 mmol/L (3.6-5.0) 09/23/16 09:26 Chloride 102.0 mmol/L (98-107) 09/23/16 09:26 Carbon Dioxide 28 mmol/L (22-30) 09/23/16 09:26 Anion Gap 15 mmol/L 09/23/16 09:26 BUN 14 mg/dL (7-17) 09/23/16 09:26 Creatinine 0.9 mg/dL (0.7-1.2) 09/23/16 09:26 Estimated GFR > 60 ml/min 09/23/16 09:26 BUN/Creatinine Ratio 15.55 % 09/23/16 09:26 Glucose 53 mg/dL (65-100) L 09/23/16 09:26 POC Glucose 105 (70-105) 09/23/16 18:37 Calcium 9.2 mg/dL (8.4-10.2) 09/23/16 09:26 Total Bilirubin 0.30 mg/dL (0.1-1.2) 09/23/16 10:37 Direct Bilirubin < 0.2 mg/dL (0-0.2) 09/23/16 10:37 AST 16 units/L (5-40) 09/23/16 10:37 ALT 13 units/L (7-56) 09/23/16 10:37 Alkaline Phosphatase 85 units/L (35-129) 09/23/16 10:37 Troponin T < 0.010 ng/mL (0.00-0.029) 09/23/16 15:40 NT-Pro-B Natriuret Pep 48.20 pg/mL (0-900) 09/23/16 10:37 Total Protein 7.1 g/dL (6.3-8.2) 09/23/16 10:37 Albumin 4.0 g/dL (3.9-5) 09/23/16 10:37 Albumin/Globulin Ratio 1.3 % 09/23/16 10:37 - Imaging and Cardiology EKG: report reviewed Chest x-ray: report reviewed Assessment and Plan Advance Directives: Yes (FC) VTE prophylaxis?: Chemical Plan of care discussed with patient/family: Yes - Patient Problems (1) Chest pain Current Visit: Yes Status: Acute Qualifiers: Chest pain type: unspecified Ischemic chest pain type: I Qualified Code(s ): R07.9 - Chest pain, unspecified Plan to address problem: Chest pain r/o MT Serial Lexiscan in AM and serial CE's (2) Asthma Current Visit: Yes Status: Chronic Qualifiers: Asthma severity: A Asthma complication type: uncomplicated Plan to address problem: MDI's qid prn (3) Anxiety and depression Current Visit: Yes Status: Chronic Plan to address problem: Cont Buspar Trazodone (4) DVT prophylaxis Current Visit: Yes Status: Acute Plan to address problem: On Lovenox 40 mg sq qd
[2016-09-23] MEDS ORDERED: NAPROSYN PO PRN (20:58)
[2016-09-23] MEDS ORDERED: NON-FORMULARY (Albuterol Sulfate [Albuterol 0.63% Nebs] 0.63 MG) IH PRN (20:58)
[2016-09-23] MEDS ORDERED: WELLBUTRIN PO SCH (21:00)
[2016-09-23] MEDS ORDERED: PROVENTIL IH PRN (21:25)
[2016-09-23] MEDS ORDERED: NON-FORMULARY (Buspirone Hcl [Buspirone] 15 MG) PO SCH (22:00)
[2016-09-23] MEDS: WELLBUTRIN PO SCH (23:19)
[2016-09-23] MEDS: PEPCID PO SCH (23:19)
[2016-09-23] MEDS: BUSPAR PO SCH (23:20)
[2016-09-23] MEDS: DESYREL PO PRN (23:27)
[2016-09-24 06:11] LABS: Alanine Aminotransferase 12 units/L (7-56); Albumin 3.8 g/dL (3.9-5); Albumin/Globulin Ratio 1.1 %; Alkaline Phosphatase 79 units/L (35-129); Anion Gap 16 mmol/L; BUN/Creatinine Ratio 18.88; Blood Urea Nitrogen 17 mg/dL (7-17); Calcium 9.1 mg/dL (8.4-10.2); Carbon Dioxide 27 mmol/L (22-30); Glucose 89 mg/dL (65-100); Potassium 4.7 mmol/L (3.6-5.0); Sodium 140 mmol/L (137-145); Total Protein 7.3 g/dL (6.3-8.2)
[2016-09-24] MEDS ORDERED: DELTASONE PO SCH (10:00)
[2016-09-24] MEDS: PEPCID PO SCH ×2 (10:26→23:10)
[2016-09-24] MEDS: WELLBUTRIN PO SCH (10:26)
--- NOTE | 2016-09-24 10:26 | Admit Criteria Form ---
Admission Criteria Documentation: CARDIOLOGY GRG Clinical Indications for Admission to Inpatient Care ([place]/check or initial the applicable condition/criteria) Hospital admission is needed for appropriate care of the patient because of ANY ONE of the following: [ ] I. Hemodynamic instability as indicated by ALL of the following (1)(2)(3) (4)(5)(6)(7)(8)(9)(10) [ ]a) Vital sign abnormality not readily corrected by appropriate treatment with 12-24 hours for ANY ONE: [ ]i) Hypotension that persists despite appropriate treatment (eg, volume repletion) [ ]ii) Tachycardiathat persists despite appropriate tx ( e.g., analgesia, fluids, sedation as indicated [ ]iii) Orthostatic vital sign changes that persists despite appropriate treatment (eg, volume repletion) [ ]b) Vital sign abnormailty that is severe indicated by ANY ONE of the following: [ ]i) Inadequate perfusion indicated by ANY ONE of the following: [ ] 1) Lactic acidosis (> 2 mmol/L) [ ] 2) New abnormal capillary refill (> 3 seconds) [ ] 3) Reduced urine output [ ] 4) New altered mental status [ ] 5) Myocardial Ischemia [ ] 6) Other metabolic acidosis (arterial pH <7.35 ) not otherwise explained. [ ]ii) Mean arterial pressure[A] less than 60 mm Hg [ ]iii) Mean arterial pressure[A] less than 70 mm Hg after 30 minutes of appropriate treatment (eg, fluid resuscitation) [ ]iv) Sustained heart rate greater than 120 beats per minute in adult or child 6 years or older[B] [ ]v) IV inotropic or vasopressor medication required to maintain adequate blood pressure or perfusion [ ] II. Severe heart failure as indicated by ANY ONE of the following(17)(18) [ ]a) Respiratory distress [ ]b) Hypotension [ ]c) Debilitating anasarca refractory to therapy (eg, tissue breakdown with infection)[C](19) [ ]d) Cardiac arrhythmias of immediate concern [ ]e) Myocardial ischemia [ ] III. Cardiac arrhythmias or findings of immediate concern indicated by ANY ONE of the following (21)(22): [ ] a) Heart rhythms that are inherently dangerous or unstable indicated by ANY ONE of the following (23)(24)(25): [ ] i) Resuscitated ventricular fibrillation or cardiac arrest [ ] ii) Ventricular escape rhythm [ ] iii) Sustained ventricular tachycardia (30 seconds or more of ventricular rhythm at greater than 100 beats per minute) [ ] iv) Nonsustained ventricular tachycardia and ANY ONE of the following: [ ] 1) Suspected cardiac ischemia as cause or consequence of ventricular tachycardia [ ] 2) Acute myocarditis [ ] b) Unstable cardiac conduction defects indicated by ANY ONE of the following(25)(26)(27) [ ] i) Type II second-degree atrioventricular block [ ]ii) Third-degree atrioventricular block [ ]iii) New-onset left bundle branch block with suspected myocardial ischemia [ ]c) Any heart rhythm and ANY ONE of the following (23)(24)(28)(29) (30) [ ] i) Continuous long-term ECG monitoring needed (e.g., initiation of drug requiring monitoring for more than 24 hours) [ ] ii) Patient has automatic implanted cardioverter defibrillator that is repeatedly firing, malfunctioning, or in need of immediate adjustment of settings beyond the scope of ambulatory or observation care [ ]d) Heart rhythms of concern due to ANY ONE of the following: [ ] i) Hypotension [ ] ii) Respiratory distress [ ] iii) Association with other significant symptoms (e.g., bradycardia with syncope or ongoing dizziness, supraventricular tachycardia with chest pain (28)(29)(31) [ ] IV. Monitoring for cardiac contusion beyond the scope of observation care needed [A](32)(33)(34) [ ] V. Surgical or device complication (e.g., valve replacement complication , ICD disfunction or pacemaker dysfunction) (49)(50)(51)(52)(53)(54) [ ] . Inpatient palliative care needed. [F](51)(52) Also use Inpatient Palliative Care Criteria [ ] VII. Nonbacterial thrombotic (marantic) endocarditis(43)(44)(55)(56)(57) [X] VIII. Cardiology condition, symptom, or finding for which emergency and observation care has failed or are not considered appropriate. [ ] IX. Acute valvular disease requiring inpatient as indicated by ANY ONE of the following (40)(41) [ ]a) Acute valvular regurgitation (42) [ ]b) Noninfectious valvulitis (43)(44) [ ]c) Obstructive valve thrombosis (45)(46) [ ]d) Paravalvular leak(47)(48) [ ]e) Other significant valvular disorder remaining after emergency or observation level of care (as appropriate) [ ]X. Pericardial disease requiring inpatient treatment as indicated by ANY ONE of the following (35)(36)(37)(38) [ ]a) Suspected tamponade [ ]b) Hemopericardium [ ]c) Other significant pericardial disorder remaining after emergency or observation level of care (as appropriate)(39) [ ] XI. Cardiac ischemia beyond scope of emergency and observation care. [ ] XII. Cyanotic heart disease requiring inpatient care as indicated by 1 or more of the following(58)(59)(60): [ ]a) Acute onset of hypoxemia [ ]b) Exacerbation [ ] XIII. Hypertension requiring inpatient treatment as indicated by ANYONE of the following(11)(12)(13)(14): [ ]a) Severe hypertension (SBP greater than 180 mm Hg or DBP greater than 110 mm Hg, or greater than the 95th percentile for age, gender, and height in pediatric patients) that cannot be controlled (eg, to SBP less than 160 mm Hg and DBP less than 100 mm Hg) by emergency department or observation care treatment(15) [ ]b) Acute end organ damage secondary to hypertension (SBP greater than 140 mm Hg or DBP greater than 90 mm Hg) as indicated by ANYONE of the following: [ ] i) Hypertensive encephalopathy (eg, Altered mental status)(16) [ ] ii) Cerebral infarction [ ] iii) Intracranial hemorrhage [ ] iv) Myocardial ischemia or infarction [ ] v) Heart failure (eg, pulmonary edema) [ ] vi) Aortic dissection [ ] vii) Increased creatinine (new) with reduction of more than 50% in estimated glomerular filtration rate from baseline [ ] viii) Papilledema [ ] ix) Retinal hemorrhage [ ] x) Microangiopathic hemolytic anemia [ ] xi) Seizure [ ] xii) Other significant finding secondary to hypertension [ ] XIV. Complications of transplanted heart indicated by ANY ONE of the following(61): [ ]a) Acute graft rejection requiring inpatient management (eg, intravenous imunosuppression)(62)(63) [ ]b) Acute graft heart failure indicated by ANY ONE of the following(64): [ ] i) Hemodynamic instability [ ] ii) Cardiac arrhythmias of immediate concern [ ] iii) Pulmonary edema that is very severe (eg, mechanical ventilation needed, imminent or likely, need for 100% oxygen to keep oxygen saturation above 90%) [ ] iv) Pulmonary edema that is persistent as indicated by ALL of the following: [ ] 1) New need for oxygen therapy to keep oxygen saturation above 90 % (or increased FiO2 need from baseline) [ ] 2) Has not improved sufficiently with emergency department or observation care IV diuretics or other heart failure treatments[E]. [ ] iv) Altered mental status that is severe or persistent [ ] iv) Increased creatinine (new on laboratory test) with reduction of more than 50% in estimated glomerular filtration rate from baseline [ ] iv) Progressively (ongoing) rising creatinine (known from past laboratory test) with reduction of more than 25% in estimated glomerular filtration rate from baseline [ ] iv) Acute renal failure [ ] iv) Acute peripheral ischemia (eg, examination shows pulseless, cool, mottled, or cyanotic extremity) [ ] iv) Pulmonary artery catheter monitoring needed [ ] iv) Other sign or symptom of heart failure requiring inpatient treatment (ie, too severe or not responsive to outpatient and observation care treatment) [ ]c) Infection requiring inpatient management (eg, Hemodynamic instability, need for intravenous antimicrobial treatment)(66)(67)(68)(69)(70) [ ]d) Cardiac allograft vasculopathy requiring inpatient management (eg evidence of cardiacischemia)(71) [ ]e) Other complication of transplanted heart (eg, stroke, severe pulmonary hypertension, severe valvular dysfunction) requiring inpatient management(72) The original [employer] content created by [employer] has been revised. The portions of the content which have been revised are identified through the use of italic text or in bold, and [facility] has neither reviewed nor approved the modified material. All other unmodified content is copyright [email or web address] [facility]. Please see references footnoted in the original [email or web address] [facility] edition 2017 Admission Criteria Met: Yes
[2016-09-24 10:27] LABS: Creatine Kinase MB 1.7 ng/mL (0.0-4.0)
[2016-09-24 10:28] LABS: Creatine Kinase 145 units/L (30-135)
[2016-09-24] MEDS ORDERED: PNEUMOVAX 23 IM ONE (12:00)
[2016-09-24 16:09] LABS: Creatine Kinase MB 1.7 ng/mL (0.0-4.0)
[2016-09-24 16:10] LABS: Creatine Kinase 137 units/L (30-135)
--- NOTE | 2016-09-24 18:39 | Progress Note ---
Assessment and Plan Chest pain placed on chest pain protocol Serial Lexiscan in AM and serial CE's she ate breakfast today so stress test cannot be done d-dimer normal range Asthma with mild exacerbation MDI's qid prn Anxiety and depression Cont Buspar Trazodone DVT prophylaxis On Lovenox 40 mg sq qd Subjective Date of service: 09/24/16 Interval history: Patient seen and examined. Medical records and medication list reviewed. No acute event overnight noted by the RN. Patient c/o difficulty breathing on exertion. Patient is tolerating diet. Discussed plan of care at bedside with patient. Objective - Exam Narrative Exam: GENERAL: well-developed and well-nourished AAF lying on bed appeared to be in no discomfort. HEENT: Normocephalic. Atraumatic. No conjunctival congestion or icterus. Patient has moist mucous membranes. NECK: Supple. Trachea midline. CHEST/LUNGS: Clear to auscultated bilaterally, breathing nonlabored. No wheezes crackles or rhonchi. HEART/CARDIOVASCULAR: Regular in rate and rhythm. S1 and S2 positive. ABDOMEN: Abdomen is soft, nontender. Patient has normal bowel sounds. SKIN: There is no rash. Warm and dry. NEURO: No focal motor deficit. Follows command. MUSCULOSKELETAL: No joint effusion or tenderness. EXTRIMITY: No edema, no cyanosis or clubbing. PSYCH: Cooperative. - Constitutional Vitals: Vital Signs - 12hr 09/24/16 09/24/16 09/24/16 06:40 08:04 09:43 Temperature 98.2 F 97.6 F Pulse Rate 70 60 61 Respiratory 20 18 Rate Blood Pressure 156/70 143/63 O2 Sat by Pulse 100 100 Oximetry 09/24/16 09/24/16 10:00 18:13 Temperature 98.4 F Pulse Rate 60 Respiratory 18 18 Rate Blood Pressure 150/71 O2 Sat by Pulse 100 100 Oximetry - Labs CBC & Chem 7: 09/23/16 09:26 09/24/16 05:04 Labs: Abnormal lab results 09/24/16 09/24/16 09/24/16 Range/Units 05:04 09:30 15:27 Total Creatine Kinase 145 H 137 H (30-135) units/L Albumin 3.8 L (3.9-5) g/dL
[2016-09-24] MEDS: BUSPAR PO SCH ×2 (18:41→23:09)
[2016-09-24] MEDS ORDERED: LOVENOX SUB-Q SCH (22:00)
[2016-09-24] MEDS: DESYREL PO PRN (23:10)
[2016-09-25] MEDS: BUSPAR PO SCH (10:00)
[2016-09-25] MEDS: WELLBUTRIN PO SCH (10:01)
--- NOTE | 2016-09-25 10:45 | Discharge Summary ---
Providers - Providers Date of Admission: 09/23/16 11:32 Date of discharge: 09/25/16 Attending physician: BAO ROBERTS MD Primary care physician: MARYLIN DHILLON MD Hospitalization Reason for admission: chest pain Condition: Stable Pertinent studies: Thallium stress test negative for acute ischemia. Hospital course: 51-year-old male was admitted for atypical chest pain and acute asthma exacerbation. Cardiac enzymes were negative, thallium stress test was negative for ischemia. Patient was chest pain free. Patient does hemodynamically stable at the time of discharge. Patient's questions and concerns were addressed at the bedside. Patient's medications were revised and updated at the time of discharge Disposition: DC-01 TO HOME OR SELFCARE Time spent for discharge: 31 minutes - Discharge Diagnoses (1) Chest pain Status: Acute Qualifiers: Chest pain type: unspecified Ischemic chest pain type: I Qualified Code(s ): R07.9 - Chest pain, unspecified (2) Right shoulder pain Status: Acute Qualifiers: Chronicity: acute Qualified Code(s): M25.511 - Pain in right shoulder (3) Asthma Status: Chronic Qualifiers: Asthma severity: A Asthma complication type: uncomplicated Core Measure Documentation - Palliative Care Palliative Care/ Comfort Measures: Not Applicable - Core Measures Any of the following diagnoses?: none Exam - Physical Exam Narrative exam: Not in cardiopulmonary distress. The patient appeared well nourished and normally developed. Vital signs as documented. Head exam is unremarkable. No scleral icterus . Neck is without jugular venous distension, thyromegaly, or carotid bruits. Lungs scattered wheezing. Cardiac exam reveals regular rate and Rhythm. First and second heart sounds normal. No murmurs, rubs or gallops. Abdominal exam reveals normal bowel sounds, no masses, no organomegaly and no aortic enlargement. Extremities are nonedematous and both femoral and pedal pulses are normal. MANGLE TENDER: Alert and oriented 3. No focal weakness. - Constitutional Vitals: Temp Pulse Resp BP Pulse Ox 97.6 F 57 L 18 132/79 99 09/25/16 09:45 09/25/16 09:45 09/25/16 09:45 09/25/16 09:45 09/25/16 09:45 Plan Activity: no restrictions Weight Bearing Status: Full Weight Bearing Diet: low cholesterol Follow up with: MARYLIN DHILLON MD [Primary Care Provider] - 3-5 Days Prescriptions: Prednisone [predniSONE 10 mg (6-Day Pack, 21 Tabs)] 10 mg PO .TAPER #1 tab.ds.pk
[2016-09-25] MEDS ORDERED: LEXISCAN IV ONE ×2 (12:29→12:30)
[2016-09-25 14:12] VITALS: BP 121/71
[2016-09-25] MEDS ORDERED: PNEUMOVAX 23 IM ONE (16:30)
--- NOTE | 2016-09-26 05:46 | Treadmill Report ---
THALLIUM STRESS TEST LEFT VENTRICLE: Left ventricular chamber size is within normal. Perfusion study demonstrates normal apical thinning, otherwise, homogeneous uptake of the tracer in all segments, no significant perfusion defects identified. Gated analysis demonstrates normal left ventricular systolic function, ejection fraction 60%. CONCLUSION: No demonstrable ischemia on thallium perfusion imaging. Negative study. JOB# [id number] CA/NTS
--- NOTE | 2016-10-02 08:44 | Query- Chest Pain ---
Elham Mcintosh Mauricio Date:___10/02/16 Staffing Account Manager/CDS:____Marvinmireille / Philippe Phone#:___[phone] Exercise your independent professional judgment when responding to query. Questions asked do not imply a particular answer is desired or expected. We greatly appreciate your clarification on this issue. Clinical Documentation States: 51 year old female was admitted on 09/23/16. The discharge summary (Dr. Martínez) states " 51-year-old male was admitted for atypical chest pain and acute asthma exacerbation. Cardiac enzymes were negative , thallium stress test was negative for ischemia. Patient was chest pain free - Discharge Diagnoses (1) Chest pain " Please document the etiology of Chest Pain: [ ] Myocardial Infarction [ ] Pneumonia [ ] Mediastinitis [ x] Costochondritis [ ] Pulmonary Embolism [ ] Coronary Artery Disease [ ] GERD [ ] Other: [ ] Comment/Explanation: Present on Admission: [ x] Yes (Y) [ ] Clinically undeterminable (W) [ ] No(N) Please document response in your Progress Notes and/or Discharge Summary and indicate if the condition was present on admission. JULITOD
--- NOTE | 2016-10-02 08:51 | Query- General ---
Elham Mcintosh____Mauricio Date:____10/02/16 Lay Out Former/CDS:____Marvinmireille / Philippe Phone#:__[phone] Exercise your independent professional judgment when responding to this query. Questions asked do not imply a particular answer is desired or expected. We greatly appreciate your clarification on this issue. Clinical Documentation States: 51 year old female was admitted on 09/23/16 The discharge summary (Dr. Martínez) states " 51-year-old male was admitted for atypical chest pain and acute asthma exacerbation " Clinical Findings Show (include reference to source document): BMI: 40.8 Given the above clinical scenario can you please provide an appropriate diagnosis based on your knowledge of the patient: PHYSICIAN RESPONSE: [ ] Obesity [ x ] Morbid obesity [ ] Other (please specify) [ ] Clinically undetermined Present on Admission: [x ] Yes (Y) [ ] Clinically undeterminable (W) [ ]No(N) Please also document response in your Progress Notes and/or Discharge Summary and indicate if the condition was present on admission. LAMONT
== END 2016-09-25 17:28 | disposition home or self-care (01) | DRG 206 ==
LOC: ED 09:13 → 4A 11:32
PROVIDERS: ADMIT Internal Medicine; ATTEND Internal Medicine
PROC: 3E0234Z Introduction of Serum, Toxoid and Vaccine into Muscle, Percutaneous Approach (ICD-10-PCS; principal; 2016-09-23)
DX: M94.0 Chondrocostal junction syndrome [Tietze] (principal); J45.901 Unspecified asthma with (acute) exacerbation; F41.9 Anxiety disorder, unspecified; E16.2 Hypoglycemia, unspecified; F32.9 Major depressive disorder, single episode, unspecified; Z88.2 Allergy status to sulfonamides; Z91.010 Allergy to peanuts; Z91.013 Allergy to seafood; Z98.891 History of uterine scar from previous surgery; Z87.891 Personal history of nicotine dependence; E66.01 Morbid (severe) obesity due to excess calories; Z68.41 Body mass index [BMI] 40.0-44.9, adult
CPT/HCPCS: 36415; 71010; 78452; 80048; 80053; 80074; 82550; 82553; 82962; 83880; 84484; 85007; 85025; 85379; 85610; 85730; 90732; 93005; 93017; 94640; 94760; 99285; A9502; J1650; J2785; J7512

== ENCOUNTER 2017-02-12 20:15 | Emergency (ER) | payer OTHER ==
[2017-02-12 21:03] VITALS: BP 138/76
[2017-02-12] MEDS ORDERED: ASPIRIN PO ONE (21:04)
[2017-02-12 21:25] LABS: Hematocrit 36.8 % (30.3-42.9); Hemoglobin 12.1 gm/dl (10.1-14.3); Mean Corpuscular HGB Conc 33 % (30-34); Mean Corpuscular Hemoglobin 29 pg (28-32); Mean Corpuscular Volume 87 fl (79-97); Platelet Count 329 K/mm3 (140-440); Red Blood Count 4.24 M/mm3 (3.65-5.03)
[2017-02-12 21:32] LABS: BUN/Creatinine Ratio 19; Blood Urea Nitrogen 19 mg/dL (7-17); Calcium 9.6 mg/dL (8.4-10.2); Hemolysis Index 6
[2017-02-12 22:00] LABS: Basophils % (Manual) 0 % (0.0-1.8); Eosinophils % (Manual) 0 % (0.0-4.3); Total Cells Counted 100
[2017-02-12 22:01] LABS: Hypochromasia 1+; Ovalocytes Few
== END 2017-02-13 05:30 | disposition left against medical advice (07) ==
LOC: ED 20:15
DX: R07.9 Chest pain, unspecified (principal); Z53.21 Procedure and treatment not carried out due to patient leaving prior to being seen by health care provider
CPT/HCPCS: 36415; 80048; 84484; 85007; 85025; 93005; 93010

== ENCOUNTER 2017-02-17 09:59 | Emergency (ER) | payer OTHER ==
[2017-02-17 11:31] LABS: Basophils % (Auto) 0.8 % (0.0-1.8); Eosinophils # (Auto) 0.1 K/mm3 (0.0-0.4); Eosinophils % (Auto) 2.3 % (0.0-4.3); Hematocrit 37.5 % (30.3-42.9); Lymphocytes % (Auto) 50.4 % (13.4-35.0); Mean Corpuscular HGB Conc 32 % (30-34); Mean Corpuscular Hemoglobin 28 pg (28-32); Mean Corpuscular Volume 87 fl (79-97); Monocytes # (Auto) 0.5 K/mm3 (0.0-0.8); Platelet Count 305 K/mm3 (140-440); Red Blood Count 4.32 M/mm3 (3.65-5.03); Red Cell Distribution Width 15.3 % (13.2-15.2)
[2017-02-17] MEDS ORDERED: PROTONIX PO ONE (11:49)
[2017-02-17 11:50] LABS: BUN/Creatinine Ratio 25; Blood Urea Nitrogen 20 mg/dL (7-17); Calcium 9.3 mg/dL (8.4-10.2); Hemolysis Index 9
--- NOTE | 2017-02-17 11:54 | Emergency Department Report ---
ED Chest Pain HPI - General Chief Complaint: Chest Pain Stated Complaint: CHEST PAIN Time Seen by Provider: 02/17/17 11:48 Source: patient Mode of arrival: Ambulatory Limitations: No Limitations - History of Present Illness Initial Comments: Patient is 51 years old female was no significant past medical history except for obstructive sleep apnea that she was recently diagnosed with and she is waiting for her CPAP machine. She presented today with three-day history of substernal chest pain and burning sensation, patient stated that she felt like acid going up and down. Patient denied any shortness of breath, fever. Patient stated that she is having cough with that. MD Complaint: chest pain -: days(s) Onset: during rest Pain Location: substernal Pain Radiation: none Severity: moderate Quality: other (burning) Consistency: intermittent Improves With: antacids - Related Data Home Medications Medication Instructions Recorded Confirmed Last Taken buPROPion [Wellbutrin] 150 mg PO DAILY 01/09/13 09/23/16 2 Days Ago ~09/21/16 traZODone [Desyrel] 50 mg PO PRN PRN 01/09/13 09/23/16 2 Days Ago ~09/21/16 Buspirone HCl [busPIRone] 15 mg PO BID 02/20/15 09/23/16 2 Days Ago ~09/21/16 Previous Rx's Medication Instructions Recorded Last Taken Type Naproxen [Naprosyn TAB] 500 mg PO BID PRN #30 tablet 02/20/15 Unknown Rx ALBUTEROL Inhaler [ProAir HFA 2 puff IH QID PRN #1 inhalation 06/10/16 2 Days Ago Rx Inhaler] ~09/21/16 Albuterol Sulfate [Albuterol 0.63% 0.63 mg IH TID PRN #1 box 06/10/16 2 Days Ago Rx NEBS] ~09/21/16 Prednisone [predniSONE 10 mg 10 mg PO .TAPER #1 tab.ds.pk 09/25/16 Unknown Rx (6-Day Pack, 21 Tabs)] Pantoprazole [Protonix] 40 mg PO QDAY #30 tablet 02/17/17 Unknown Rx Allergies Allergy/AdvReac Type Severity Reaction Status Date / Time peanut Allergy Rash Verified 02/17/17 10:53 shellfish derived Allergy Hives Verified 02/17/17 10:53 Sulfa (Sulfonamide Allergy Rash Verified 02/17/17 10:53 Antibiotics) Heart Score - HEART Score History: Moderately suspicious EKG: Normal Age: 45-65 Risk factors: 1-2 risk factors Troponin: < normal limit HEART Score: 3 - Critical Actions Critical Actions: 0-3 pts:0.9-1.7%risk of adverse cardiac event.Candidate for discharge ED Review of Systems ROS: Stated complaint: CHEST PAIN Other details as noted in HPI Comment: All other systems reviewed and negative Constitutional: denies: chills, fever Respiratory: cough. denies: orthopnea, shortness of breath, SOB with exertion, SOB at rest Cardiovascular: chest pain. denies: palpitations, dyspnea on exertion, orthopnea, edema, syncope, paroxysmal nocturnal dyspnea Gastrointestinal: denies: abdominal pain, nausea, vomiting, diarrhea, constipation, hematemesis, melena, hematochezia Neurological: denies: headache, weakness, numbness, paresthesias, abnormal gait ED Past Medical Hx - Past Medical History Hx Diabetes: (A1C is 6.1) Hx Psychiatric Treatment: Yes (depression and anxiety) Hx Asthma: Yes Additional medical history: ulcers, recovering addict, palpitations - Surgical History Additional Surgical History: Bilateral hand surgery, right ankle surgery, C4-5 fusion, x1, LEFT SHOULDER, - Social History Smoking Status: Former Smoker Substance Use Type: None - Medications Home Medications: Home Medications Medication Instructions Recorded Confirmed Last Taken Type buPROPion [Wellbutrin] 150 mg PO DAILY 01/09/13 09/23/16 2 Days Ago History ~09/21/16 traZODone [Desyrel] 50 mg PO PRN PRN 01/09/13 09/23/16 2 Days Ago History ~09/21/16 Buspirone HCl [busPIRone] 15 mg PO BID 02/20/15 09/23/16 2 Days Ago History ~09/21/16 Naproxen [Naprosyn TAB] 500 mg PO BID PRN #30 tablet 02/20/15 09/23/16 Unknown Rx ALBUTEROL Inhaler [ProAir HFA 2 puff IH QID PRN #1 inhalation 06/10/16 09/23/16 2 Days Ago Rx Inhaler] ~09/21/16 Albuterol Sulfate [Albuterol 0.63% 0.63 mg IH TID PRN #1 box 06/10/16 09/23/16 2 Days Ago Rx NEBS] ~09/21/16 Prednisone [predniSONE 10 mg 10 mg PO .TAPER #1 tab.ds.pk 09/25/16 Unknown Rx (6-Day Pack, 21 Tabs)] Pantoprazole [Protonix] 40 mg PO QDAY #30 tablet 02/17/17 Unknown Rx ED Physical Exam - General Limitations: No Limitations General appearance: alert, in no apparent distress - Head Head exam: Present: atraumatic, normocephalic, normal inspection - Eye Eye exam: Present: normal appearance, PERRL Pupils: Present: normal accommodation - ENT ENT exam: Present: normal exam, normal orophraynx, mucous membranes moist - Neck Neck exam: Present: normal inspection, full ROM. Absent: tenderness, meningismus, lymphadenopathy, thyromegaly - Respiratory Respiratory exam: Present: normal lung sounds bilaterally, chest wall tenderness. Absent: respiratory distress, wheezes, rales, rhonchi, stridor, accessory muscle use, decreased breath sounds, prolonged expiratory - Cardiovascular Cardiovascular Exam: Present: regular rate, normal rhythm, normal heart sounds - GI/Abdominal GI/Abdominal exam: Present: soft, normal bowel sounds. Absent: distended, tenderness, guarding, rebound, rigid, organomegaly, mass, bruit, pulsatile mass , hernia - Extremities Exam Extremities exam: Present: normal inspection, full ROM, normal capillary refill. Absent: tenderness, pedal edema, joint swelling, calf tenderness - Back Exam Back exam: Present: normal inspection, full ROM. Absent: tenderness, CVA tenderness (R), CVA tenderness (L) - Neurological Exam Neurological exam: Present: alert, oriented X3, CN II-XII intact, normal gait, reflexes normal. Absent: abnormal gait, motor sensory deficit - Skin Skin exam: Present: warm, intact, normal color. Absent: cyanosis, diaphoretic, erythema ED Course Vital Signs 02/17/17 02/17/17 02/17/17 10:54 11:55 13:47 Temperature 98.4 F 97.6 F Pulse Rate 60 75 57 L Respiratory 18 16 15 Rate Blood Pressure 133/79 Blood Pressure 129/76 131/61 [Left] O2 Sat by Pulse 100 100 99 Oximetry REMINGTON score - Remington Score Age > 65: (0) No Aspirin use within the Past 7 Days: (0) No 3 or more CAD Risk Factors: (0) No 2 or more Angina events in past 24 hrs: (1) Yes Known CAD with more than 50% Stenosis: (0) No Elevated Cardiac Markers: (0) No ST Deviation Greater than 0.5mm: (0) No REMINGTON Score: 1 ED Medical Decision Making - Lab Data Result diagrams: 02/17/17 11:08 02/17/17 11:08 - EKG Data -: EKG Interpreted by Ia EKG shows normal: sinus rhythm Rate: bradycardia - EKG Data Interpretation: no acute changes - Radiology Data Radiology results: report reviewed Referring Physician: MOISES GONZALES Patient Name: FILIBERTO COPELAND Date of : 1965 Sex: Female Report Date: 2017-02-17 Report Status: Finalized Findings [facility] [address] [place] [address] XRay Report Signed Patient: FILIBERTO COPELAND MR#: [id number] : 1965 Acct:[id number] Age/Sex: 51 / F ADM Date: 02/17/17 Loc: ED Attending Dr: Ordering Physician: MOISES GONZALES Date of Service: 02/17/17 Procedure(s): XR chest 1V ap Accession Number(s): [id number] cc: MOISES GONZALES Fluoro Time In Minutes: Single view chest: Compared to 09/23/16. History: Chest pain. Findings: Normal cardiomediastinal silhouette. Trachea is midline. No consolidation, pneumothorax or pleural effusion. Impression: No acute cardiopulmonary findings. Transcribed By: PTP Dictated By: SHANTI CERVANTES MD Electronically Authenticated By: SHANTI CERVANTES MD Signed Date/Time: 02/17/171217 DD/ 17 TD/TT: 02/17/171217 - Medical Decision Making Patient's symptoms is mostly consistent with his GERD. At this moment there is no clinical or laboratory evidence or ischemic heart disease. I will start patient on Protonix and advised to follow-up with her primary care physician for further management. Patient advised to return to the ER if her symptoms get worse. Critical care attestation.: If time is entered above; I have spent that time in minutes in the direct care of this critically ill patient, excluding procedure time. ED Disposition Clinical Impression: Chest pain, GERD (gastroesophageal reflux disease) Disposition: TO HOME OR SELFCARE Is pt being admited?: No Condition: Stable Instructions: Chest Pain (ED), Gastroesophageal Reflux Disease (ED) Prescriptions: Pantoprazole [Protonix] 40 mg PO QDAY #30 tablet Referrals: PRIMARY CARE, [Primary Care Provider] - 3-5 Days Forms: Work/School Release Form(ED)
--- NOTE | 2017-02-17 12:36 | XRay Report ---
Single view chest: Compared to 09/23/16. History: Chest pain. Findings: Normal cardiomediastinal silhouette. Trachea is midline. No consolidation, pneumothorax or pleural effusion. Impression: No acute cardiopulmonary findings.
[2017-02-17 13:49] VITALS: BP 131/61
== END 2017-02-17 15:01 | disposition home or self-care (01) ==
LOC: ED 09:59
DX: K21.9 Gastro-esophageal reflux disease without esophagitis (principal); R07.2 Precordial pain; Z91.013 Allergy to seafood; Z88.2 Allergy status to sulfonamides; Z91.010 Allergy to peanuts; E11.9 Type 2 diabetes mellitus without complications; F32.9 Major depressive disorder, single episode, unspecified; F41.9 Anxiety disorder, unspecified; Z87.891 Personal history of nicotine dependence
CPT/HCPCS: 36415; 71045; 80048; 84484; 85025; 93005; 93010

== ENCOUNTER 2017-03-26 13:11 | Outpatient (CLI) | payer OTHER | END 2017-03-26 13:12 | disposition home or self-care (01) | LOC: PF 13:11 | PROVIDERS: ATTEND Internal Medicine | DX: J45.909 Unspecified asthma, uncomplicated (principal); F41.9 Anxiety disorder, unspecified; F32.9 Major depressive disorder, single episode, unspecified; F43.10 Post-traumatic stress disorder, unspecified; M17.11 Unilateral primary osteoarthritis, right knee; R26.89 Other abnormalities of gait and mobility; K25.9 Gastric ulcer, unspecified as acute or chronic, without hemorrhage or perforation; X58.XXXA Exposure to other specified factors, initial encounter; Y93.89 Activity, other specified; Y92.89 Other specified places as the place of occurrence of the external cause; Y99.8 Other external cause status | CPT/HCPCS: 94010; 94729 ==

== ENCOUNTER 2017-06-13 07:56 | Day surgery (SDC) | payer OTHER ==
[~2017-06-13 07:56] MED LIST: LACTATED RINGERS 1,000 ML IV SCH; VERSED IV NR
[2017-06-13] MEDS ORDERED: DIPRIVAN 10 MG/ML IV ONE (09:30)
[2017-06-13] MEDS ORDERED: SUBLIMAZE ONE (09:34)
[2017-06-13] MEDS ORDERED: PEPCID IV ONE (09:43)
[2017-06-13] MEDS ORDERED: ANCEF/STERILE WATER 2 GM/20 ML IV NR (09:57)
[2017-06-13] MEDS ORDERED: XYLOCAINE 1% 20 mL ONE (10:04)
[2017-06-13] MEDS ORDERED: MARCAINE 0.25% INFILTRATI ONE ×2 (10:04→10:42)
--- NOTE | 2017-06-13 10:06 | Anesthesia Day of Surgery ---
Anesthesia Day of Surgery - Day of Surgery Patient Examined: Yes Patient H&P Reviewed: Yes Patient is NPO: Yes
[2017-06-13] MEDS ORDERED: DILAUDID IV PRN (10:07)
[2017-06-13] MEDS ORDERED: ZOFRAN IV PRN (10:07)
--- NOTE | 2017-06-13 10:07 | Anesthesia Consultation ---
Anesthesia Consult and Med Hx Date of service: 06/13/17 - Airway Anesthetic Teeth Evaluation: Good ROM Head & Neck: Adequate Mental/Hyoid Distance: Adequate Intubation Access Assessment: Possibly Difficult - Pulmonary Exam CTA: Yes - Cardiac Exam Cardiac Exam: RRR - Pre-Operative Health Status ASA Pre-Surgery Classification: ASA3 Proposed Anesthetic Plan: General (GA with LMA ok, pepcid given in preop IV) - Pulmonary Hx Smoking: Yes (FOR 40 YEARS, QUIT JUNE 2016) Hx Asthma: Yes Hx Sleep Apnea: Yes - Cardiovascular System Hx Hypertension: Yes Hx Heart Murmur: Yes - Central Nervous System Hx Psychiatric Problems: Yes - Gastrointestinal Hx Ulcer: Yes - Other Systems Hx Alcohol Use: No Hx Substance Use: No Hx Cancer: No
[2017-06-13] MEDS ORDERED: XYLOCAINE 1% 20 mL INFILTRATI ONE (10:42)
[2017-06-13] MEDS ORDERED: NACL 0.9% IR ONE (10:42)
[2017-06-13] MEDS ORDERED: ZOFRAN ONE (10:53)
[2017-06-13] MEDS ORDERED: XYLOCAINE MPF 2% ONE (10:53)
[2017-06-13] MEDS ORDERED: DECADRON ONE (10:53)
--- NOTE | 2017-06-13 11:00 | Short Stay Summary ---
Short Stay Documentation Date of service: 06/13/17 Narrative H&P: 51 yo F presents for elective excision of right forearm soft tissue mass. The mass is painful. She has no other complaints. - History Principal diagnosis: right forearm soft tissue mass H&P: obtained from office - Allergies and Medications Current Medications: Allergies peanut Allergy (Verified 06/11/17 10:03) Rash shellfish derived Allergy (Verified 06/11/17 10:03) Hives Sulfa (Sulfonamide Antibiotics) Allergy (Verified 06/11/17 10:03) Rash Home Medications Medication Instructions Recorded Confirmed Last Taken Type Naproxen [Naprosyn TAB] 500 mg PO BID PRN #30 tablet 02/20/15 06/11/17 Unknown Rx ALBUTEROL Inhaler [ProAir HFA 2 puff IH QID PRN #1 inhalation 06/10/16 06/11/17 2 Days Ago Rx Inhaler] ~09/21/16 Albuterol Sulfate [Albuterol 0.63% 0.63 mg IH TID PRN #1 box 06/10/16 06/11/17 2 Days Ago Rx NEBS] ~09/21/16 Pantoprazole [Protonix] 40 mg PO QDAY #30 tablet 02/17/17 06/11/17 Unknown Rx Cetirizine HCl [Allergy Relief] 10 mg PO DAILY 06/11/17 06/11/17 Unknown History DULoxetine [Cymbalta] 60 mg PO QDAY 06/11/17 06/11/17 Unknown History Phentermine HCl [Adipex-P] 37.5 mg PO QAM 06/11/17 06/11/17 Unknown History Active Medications Cefazolin Sodium (Ancef/Sterile Water 2 Gm/20 Ml) 2 gm IV PREOP NR Stop: 06/13/17 23:59 Hydromorphone HCl (Dilaudid) 0.5 mg IV Q10MIN PRN PRN Reason: Pain , Severe (7-10) Stop: 06/13/17 13:00 Lactated Ringer's (Lactated Ringers) 1,000 mls @ 100 mls/hr IV DIRECT KEVYN Midazolam HCl (Versed) 2 mg IV PREOP NR Stop: 06/13/17 23:59 Ondansetron HCl (Zofran) 4 mg IV ONCE PRN PRN Reason: Nausea And Vomiting Stop: 06/13/17 11:00 - Brief post op/procedure progress note Date of procedure: 06/13/17 Pre-op diagnosis: right forearm soft tissue mass Post-op diagnosis: same Procedure: excision of right forearm soft tissue mass Anesthesia: local, other (LMA) Findings: 3cm x 2.5 cm lipoma Surgeon: SHEKHAR FLYNN Estimated blood loss: minimal Pathology: list (soft tissue mass right forearm) Specimen disposition: to lab Condition: stable - Hospital course Hospital course: Patient was observed in the PACU and discharged to home when criteria was met. - Disposition Condition at discharge: Good Disposition: DC-01 TO HOME OR SELFCARE Short Stay Discharge Plan Activity: no restrictions Diet: regular Wound: other (remove outer dressing in 2 days. May shower, pat incision dry, do not scrub or submerge incision in water until healed.) Additional Instructions: Call surgeon's office if you have redness/swelling around incision Follow up with: DENIZ PUCKETT MD [Primary Care Provider] - 7 Days SHEKHAR FLYNN DO [Staff Physician] - 14 Days
--- NOTE | 2017-06-13 11:42 | Post Anesthesia Evaluation ---
- Post Anesthesia Evaluation Patient Participated: Yes Airway Patent: Yes Stable Respiratory Function: Yes Nausea/Vomiting: No Temp > 96.8F: Yes Pain Manageable: Yes Adequeate Hydration: Yes Anesthesia Complications: No
[2017-06-13 13:55] VITALS: BP 146/75
--- NOTE | 2017-06-14 00:06 | Operative Report ---
Operative Report Operative Report: Date of procedure: 06/13/17 Pre-op diagnosis: right forearm soft tissue mass Post-op diagnosis: same Procedure: excision of right forearm soft tissue mass Anesthesia: local, other (LMA) Findings: 3cm x 2.5 cm lipoma Surgeon: SHEKHAR FLYNN Estimated blood loss: minimal Pathology: list (soft tissue mass right forearm) Specimen disposition: to lab Condition: stable HPI and indication: 51 yo F who was seen in the office with c/o pain in the right upper forearm associated with a lump in that location. On exam, the patient had a tender soft tissue mass in this location. All risks, benefits, and alternatives to excision of the mass were discussed and consent obtained in the office. Procedure in detail: The patient was identified in the preoperative area and taken to the OR and placed on the OR table in supine position. After anesthesia was induced, the right arm was prepped and draped in the usual sterile fashion and a timeout performed. The skin over the soft tissue mass was anesthetized with local anesthetic. A 2 cm incision was made using a 15 blade along the long axis of the extremity. Dissection was carried down through the skin and subcutaneous tissue using electrocautery. Using a hemostat the soft tissue mass was circumferentially dissected free from the surrounding tissue until it was removed. This appeared to be a lipoma and measured approximately 3cm x 2.5 cm. It was passed of the table as a specimen. The wound was irrigated and hemostasis ensured. The deep dermal layer was closed using 3-0 vicryl interrupted sutures. The skin was closed using 4-0 monocryl subcuticular stutures and skin glue. A telfa, 4x4 gauze compression dressing was applied and secured with tegaderm. At the end of the case, all sponge, instrument, and sharp counts were correct x2. The patient was awoken from anesthesia and taken to PACU in stable condition.
== END 2017-06-13 12:35 | disposition home or self-care (01) ==
LOC: OR 07:56
PROVIDERS: ATTEND Surgery
DX: D17.21 Benign lipomatous neoplasm of skin and subcutaneous tissue of right arm (principal); J45.909 Unspecified asthma, uncomplicated; G47.33 Obstructive sleep apnea (adult) (pediatric); I10 Essential (primary) hypertension; E66.9 Obesity, unspecified; F32.9 Major depressive disorder, single episode, unspecified; F41.9 Anxiety disorder, unspecified; Z87.891 Personal history of nicotine dependence; Z99.89 Dependence on other enabling machines and devices; Z98.890 Other specified postprocedural states; Z88.2 Allergy status to sulfonamides; Z91.010 Allergy to peanuts; Z91.013 Allergy to seafood; Z68.41 Body mass index [BMI] 40.0-44.9, adult
CPT/HCPCS: 25071; 88304; J0690; J1100; J2250; J2405; J2704; J3010; J7120

== ENCOUNTER 2017-07-08 17:11 | Emergency (ER) | payer OTHER ==
[2017-07-08 17:21] VITALS: BP 134/71
== END 2017-07-08 17:45 | disposition left against medical advice (07) ==
LOC: ED 17:11
DX: M25.561 Pain in right knee (principal); M25.511 Pain in right shoulder; M25.562 Pain in left knee; M54.2 Cervicalgia; Z91.013 Allergy to seafood; Z91.010 Allergy to peanuts; Z88.1 Allergy status to other antibiotic agents; Z53.21 Procedure and treatment not carried out due to patient leaving prior to being seen by health care provider; W01.0XXA Fall on same level from slipping, tripping and stumbling without subsequent striking against object, initial encounter; Y93.89 Activity, other specified; Y99.8 Other external cause status; Y92.89 Other specified places as the place of occurrence of the external cause

== ENCOUNTER 2017-07-09 12:01 | Emergency (ER) | payer OTHER ==
--- NOTE | 2017-07-09 12:32 | Emergency Department Report ---
ED Fall HPI - General Chief Complaint: Fall Stated Complaint: FALL Time Seen by Provider: 07/09/17 12:21 Source: patient Mode of arrival: Ambulatory - History of Present Illness Initial Comments: Patient is 51 years old female presented to the ER complaining of right knee pain and right shoulder pain after she slipped and fell last night due to rain. Patient denied any other injuries. MD Complaint: fall -: Last night Fall From: standing Place Fall Occurred: street Loss of Consciousness: none Prolonged Down Time?: no Symptoms Prior to Fall: none Location - Extremities: Right: Knee Severity scale (0 -10): 4 Context: tripped/slipped Associated Symptoms: denies. denies: headache, neck pain, numbness, weakness, chest paint, shortness of breath, abdominal pain, hematuria, unable to walk, lightheaded, vertigo, confusion - Related Data Home Medications Medication Instructions Recorded Confirmed Last Taken Cetirizine HCl [Allergy Relief] 10 mg PO DAILY 06/11/17 06/11/17 Unknown DULoxetine [Cymbalta] 60 mg PO QDAY 06/11/17 06/11/17 Unknown Phentermine HCl [Adipex-P] 37.5 mg PO QAM 06/11/17 06/11/17 Unknown Previous Rx's Medication Instructions Recorded Last Taken Type Naproxen [Naprosyn TAB] 500 mg PO BID PRN #30 tablet 02/20/15 Unknown Rx ALBUTEROL Inhaler [ProAir HFA 2 puff IH QID PRN #1 inhalation 06/10/16 2 Days Ago Rx Inhaler] ~09/21/16 Albuterol Sulfate [Albuterol 0.63% 0.63 mg IH TID PRN #1 box 06/10/16 2 Days Ago Rx NEBS] ~09/21/16 Pantoprazole [Protonix] 40 mg PO QDAY #30 tablet 02/17/17 Unknown Rx Allergies Allergy/AdvReac Type Severity Reaction Status Date / Time peanut Allergy Rash Verified 07/09/17 12:03 shellfish derived Allergy Hives Verified 07/09/17 12:03 Sulfa (Sulfonamide Allergy Rash Verified 07/09/17 12:03 Antibiotics) ED Review of Systems ROS: Stated complaint: FALL Other details as noted in HPI Comment: All other systems reviewed and negative Constitutional: denies: chills Respiratory: denies: cough Cardiovascular: denies: chest pain, palpitations Gastrointestinal: denies: abdominal pain, nausea, vomiting, diarrhea ED Past Medical Hx - Past Medical History Hx Hypertension: Yes Hx Diabetes: Yes (A1C is 6.1) Hx GERD: Yes Hx Arthritis: Yes Hx Psychiatric Treatment: Yes (depression and anxiety) Hx Asthma: Yes Hx HIV: No Additional medical history: ulcers, recovering addict, palpitations - Surgical History Additional Surgical History: Bilateral hand surgery, right ankle surgery, C4-5 fusion, x1, LEFT SHOULDER, - Social History Smoking Status: Former Smoker Substance Use Type: None - Medications Home Medications: Home Medications Medication Instructions Recorded Confirmed Last Taken Type Naproxen [Naprosyn TAB] 500 mg PO BID PRN #30 tablet 02/20/15 06/11/17 Unknown Rx ALBUTEROL Inhaler [ProAir HFA 2 puff IH QID PRN #1 inhalation 06/10/16 06/11/17 2 Days Ago Rx Inhaler] ~09/21/16 Albuterol Sulfate [Albuterol 0.63% 0.63 mg IH TID PRN #1 box 06/10/16 06/11/17 2 Days Ago Rx NEBS] ~09/21/16 Pantoprazole [Protonix] 40 mg PO QDAY #30 tablet 02/17/17 06/11/17 Unknown Rx Cetirizine HCl [Allergy Relief] 10 mg PO DAILY 06/11/17 06/11/17 Unknown History DULoxetine [Cymbalta] 60 mg PO QDAY 06/11/17 06/11/17 Unknown History Phentermine HCl [Adipex-P] 37.5 mg PO QAM 06/11/17 06/11/17 Unknown History ED Physical Exam - General Limitations: No Limitations General appearance: alert, in no apparent distress - Head Head exam: Present: atraumatic, normocephalic, normal inspection - ENT ENT exam: Present: normal exam, normal orophraynx - Neck Neck exam: Present: normal inspection, full ROM. Absent: tenderness, meningismus, lymphadenopathy, thyromegaly - Respiratory Respiratory exam: Present: normal lung sounds bilaterally. Absent: respiratory distress - Cardiovascular Cardiovascular Exam: Present: regular rate, normal rhythm, normal heart sounds - GI/Abdominal GI/Abdominal exam: Present: soft. Absent: distended, tenderness, guarding, rebound - Extremities Exam Extremities exam: Present: normal inspection, tenderness (right knee tenderness) , normal capillary refill. Absent: calf tenderness - Back Exam Back exam: Present: normal inspection, full ROM. Absent: tenderness, CVA tenderness (R), CVA tenderness (L) - Neurological Exam Neurological exam: Present: alert, oriented X3, CN II-XII intact, normal gait - Skin Skin exam: Present: warm, intact, normal color ED Course Vital Signs 07/09/17 12:04 Temperature 98.2 F Pulse Rate 74 Respiratory 20 Rate Blood Pressure 117/65 O2 Sat by Pulse 100 Oximetry ED Medical Decision Making - Radiology Data Radiology results: report reviewed Right knee x-ray is negative for acute finding. Critical care attestation.: If time is entered above; I have spent that time in minutes in the direct care of this critically ill patient, excluding procedure time. ED Disposition Clinical Impression: Right knee pain Disposition: DC-01 TO HOME OR SELFCARE Is pt being admited?: No Condition: Stable Instructions: Knee Pain (ED) Referrals: PRIMARY CARE, [Primary Care Provider] - 3-5 Days
[2017-07-09 14:00] VITALS: BP 120/68
--- NOTE | 2017-07-10 12:50 | XRay Report ---
Right knee 3 views: History: Knee injury, pain. Findings: Narrowing of the medial and patellofemoral compartment of knee joint. Sclerotic adjacent articular surfaces with peripheral osteophytes suggesting degenerative changes. No fracture or soft tissue calcification. No definite joint effusion. Impression: Degenerative changes medial and patellofemoral compartment knee joint.
== END 2017-07-09 14:00 | disposition home or self-care (01) ==
LOC: ED 12:01
DX: M25.561 Pain in right knee (principal); M25.511 Pain in right shoulder

== ENCOUNTER 2017-11-01 09:32 | Emergency (ER) | payer OTHER ==
--- NOTE | 2017-11-01 09:51 | Emergency Department Report ---
ED Fall HPI - General Chief Complaint: Fall Stated Complaint: FALL INJURY Time Seen by Provider: 11/01/17 09:51 Source: patient, EMS Mode of arrival: Stretcher Limitations: No Limitations - History of Present Illness Initial Comments: Patient said she tripped and fell and landed on her left knee and left shoulder. She also c/o right wrist and neck pain. She denies loss of consciousness. Complaint: fall -: Sudden Fall From: standing When Fall Occurred: just prior to arrival Fall Witnessed: no Place Fall Occurred: work Loss of Consciousness: none Prolonged Down Time?: no Symptoms Prior to Fall: none Location: head, neck Location - Extremities: Left: Shoulder, Knee Severity: moderate Severity scale (0 -10): 5 Quality: sharp Context: tripped/slipped Associated Symptoms: headache, neck pain - Related Data Home Medications Medication Instructions Recorded Confirmed Last Taken Cetirizine HCl [Allergy Relief] 10 mg PO DAILY 06/11/17 06/11/17 Unknown DULoxetine [Cymbalta] 60 mg PO QDAY 06/11/17 06/11/17 Unknown Phentermine HCl [Adipex-P] 37.5 mg PO QAM 06/11/17 06/11/17 Unknown Previous Rx's Medication Instructions Recorded Last Taken Type Naproxen [Naprosyn TAB] 500 mg PO BID PRN #30 tablet 02/20/15 Unknown Rx ALBUTEROL Inhaler (OR & NICU) 2 puff IH QID PRN #1 inhalation 06/10/16 2 Days Ago Rx [ProAir HFA Inhaler] ~09/21/16 Albuterol Sulfate [Albuterol 0.63% 0.63 mg IH TID PRN #1 box 06/10/16 2 Days Ago Rx NEBS] ~09/21/16 Pantoprazole [Protonix] 40 mg PO QDAY #30 tablet 02/17/17 Unknown Rx Ondansetron [Zofran Odt] 4 mg PO Q8HR PRN #14 tab.rapdis 07/09/17 Unknown Rx traMADol [Ultram 50 MG tab] 50 mg PO Q4HR PRN #14 tablet 07/09/17 Unknown Rx Ibuprofen [Motrin] 800 mg PO Q8HR PRN #20 tablet 11/01/17 Unknown Rx traMADol [Ultram 50 MG tab] 50 mg PO Q8H PRN #6 tablet 11/01/17 Unknown Rx Allergies Allergy/AdvReac Type Severity Reaction Status Date / Time peanut Allergy Rash Verified 07/09/17 12:03 shellfish derived Allergy Hives Verified 07/09/17 12:03 Sulfa (Sulfonamide Allergy Rash Verified 07/09/17 12:03 Antibiotics) ED Review of Systems ROS: Stated complaint: FALL INJURY Other details as noted in HPI Comment: All other systems reviewed and negative Constitutional: denies: chills, fever Eyes: denies: eye pain, eye discharge ENT: denies: ear pain, throat pain Respiratory: denies: cough, shortness of breath Cardiovascular: denies: chest pain, palpitations, dyspnea on exertion, orthopnea , edema Endocrine: no symptoms reported Gastrointestinal: denies: abdominal pain, nausea, vomiting, diarrhea, constipation Genitourinary: denies: urgency, dysuria, frequency Musculoskeletal: denies: back pain, joint swelling Skin: denies: rash, lesions Neurological: headache. denies: weakness, numbness, paresthesias, confusion Psychiatric: denies: anxiety, depression Hematological/Lymphatic: denies: easy bleeding, easy bruising ED Past Medical Hx - Past Medical History Previous Medical History?: Yes Hx Hypertension: Yes Hx Diabetes: Yes (A1C is 6.1) Hx GERD: Yes Hx Arthritis: Yes Hx Psychiatric Treatment: Yes (depression and anxiety) Hx Asthma: Yes Hx HIV: No Additional medical history: ulcers, recovering addict, palpitations - Surgical History Additional Surgical History: Bilateral hand surgery, right ankle surgery, C4-5 fusion, x1, LEFT SHOULDER, - Social History Smoking Status: Never Smoker - Medications Home Medications: Home Medications Medication Instructions Recorded Confirmed Last Taken Type Naproxen [Naprosyn TAB] 500 mg PO BID PRN #30 tablet 02/20/15 06/11/17 Unknown Rx ALBUTEROL Inhaler (OR & NICU) 2 puff IH QID PRN #1 inhalation 06/10/16 06/11/17 2 Days Ago Rx [ProAir HFA Inhaler] ~09/21/16 Albuterol Sulfate [Albuterol 0.63% 0.63 mg IH TID PRN #1 box 06/10/16 06/11/17 2 Days Ago Rx NEBS] ~09/21/16 Pantoprazole [Protonix] 40 mg PO QDAY #30 tablet 02/17/17 06/11/17 Unknown Rx Cetirizine HCl [Allergy Relief] 10 mg PO DAILY 06/11/17 06/11/17 Unknown History DULoxetine [Cymbalta] 60 mg PO QDAY 06/11/17 06/11/17 Unknown History Phentermine HCl [Adipex-P] 37.5 mg PO QAM 06/11/17 06/11/17 Unknown History Ondansetron [Zofran Odt] 4 mg PO Q8HR PRN #14 tab.rapdis 07/09/17 Unknown Rx traMADol [Ultram 50 MG tab] 50 mg PO Q4HR PRN #14 tablet 07/09/17 Unknown Rx Ibuprofen [Motrin] 800 mg PO Q8HR PRN #20 tablet 11/01/17 Unknown Rx traMADol [Ultram 50 MG tab] 50 mg PO Q8H PRN #6 tablet 11/01/17 Unknown Rx ED Physical Exam - General Limitations: No Limitations General appearance: alert, in no apparent distress, obese - Head Head exam: Present: atraumatic, normocephalic, normal inspection - Eye Eye exam: Present: normal appearance, PERRL, EOMI Pupils: Present: normal accommodation - ENT ENT exam: Present: normal exam, normal orophraynx, mucous membranes moist - Neck Neck exam: Present: normal inspection, full ROM. Absent: tenderness - Respiratory Respiratory exam: Present: normal lung sounds bilaterally. Absent: respiratory distress, wheezes, rales, rhonchi, stridor - Cardiovascular Cardiovascular Exam: Present: regular rate, normal rhythm, normal heart sounds - GI/Abdominal GI/Abdominal exam: Present: soft, normal bowel sounds. Absent: distended, tenderness, guarding, rebound, rigid - Extremities Exam Extremities exam: Present: normal inspection, full ROM, tenderness (left knee tenderness to palpation), normal capillary refill. Absent: pedal edema, joint swelling, calf tenderness - Back Exam Back exam: Present: normal inspection, full ROM. Absent: tenderness, CVA tenderness (R), CVA tenderness (L), muscle spasm, paraspinal tenderness, vertebral tenderness - Neurological Exam Neurological exam: Present: alert, oriented X3, CN II-XII intact - Psychiatric Psychiatric exam: Present: normal affect, normal mood - Skin Skin exam: Present: warm, dry, intact, normal color. Absent: rash ED Course - Reevaluation(s) Reevaluation #1: 11/01/17 12:25 Patient C-spine was cleared in the ED. ED Medical Decision Making - Lab Data Result diagrams: 11/01/17 10:18 11/01/17 10:18 - Radiology Data Radiology results: report reviewed, image reviewed - Medical Decision Making S/P Fall. left Knee pain. Left Shoulder Pain. Neck Pain. Critical care attestation.: If time is entered above; I have spent that time in minutes in the direct care of this critically ill patient, excluding procedure time. ED Disposition Clinical Impression: Fall Qualifiers: Encounter type: initial encounter Qualified Code(s): W19.XXXA - Unspecified fall, initial encounter Left knee sprain Qualifiers: Encounter type: initial encounter Involved ligament of knee: unspecified ligament Qualified Code(s): S83.92XA - Sprain of unspecified site of left knee, initial encounter Contusion Qualifiers: Encounter type: initial encounter Contusion area: knee Laterality: left Qualified Code(s): S80.02XA - Contusion of left knee, initial encounter Disposition: - TO HOME OR SELFCARE Is pt being admited?: No Does the pt Need Aspirin: No Condition: Stable Instructions: Knee Sprain (ED) Additional Instructions: Please follow up with the Orthopedic Surgeon Dr Artur Herrera for further evaluation and management. Return to the ED if your condition worsens. Prescriptions: Ibuprofen [Motrin] 800 mg PO Q8HR PRN #20 tablet PRN Reason: Pain, Mild (1-3) traMADol [Ultram 50 MG tab] 50 mg PO Q8H PRN #6 tablet PRN Reason: Pain Referrals: PRIMARY CAREMD [Primary Care Provider] - 3-5 Days ARTUR HERRERA MD [Staff Physician] - 3-5 Days Forms: Work/School Release Form(ED) Time of Disposition: 12:22
[2017-11-01] MEDS ORDERED: SUBLIMAZE IV ONE (10:07)
[2017-11-01] MEDS ORDERED: ZOFRAN IV ONE (10:07)
[2017-11-01 11:04] LABS: Basophils % (Auto) 0.6 % (0.0-1.8); Eosinophils # (Auto) 0.2 K/mm3 (0.0-0.4); Eosinophils % (Auto) 3.5 % (0.0-4.3); Hematocrit 36.2 % (30.3-42.9); Lymphocytes # (Auto) 2.3 K/mm3 (1.2-5.4); Lymphocytes % (Auto) 38.5 % (13.4-35.0); Mean Corpuscular HGB Conc 33 % (30-34); Mean Corpuscular Hemoglobin 29 pg (28-32); Mean Corpuscular Volume 86 fl (79-97); Monocytes # (Auto) 0.6 K/mm3 (0.0-0.8); Monocytes % (Auto) 9.2 % (0.0-7.3); Platelet Count 324 K/mm3 (140-440); Red Blood Count 4.21 M/mm3 (3.65-5.03)
[2017-11-01 11:11] LABS: Alanine Aminotransferase 13 units/L (7-56); BUN/Creatinine Ratio 16; Blood Urea Nitrogen 14 mg/dL (7-17); Calcium 9.5 mg/dL (8.4-10.2); Hemolysis Index 0
--- NOTE | 2017-11-01 11:15 | XRay Report ---
RIGHT WRIST, 4 VIEWS: History: wrist pain, injury. Routine views demonstrate the carpal bones to be well mineralized with well preserved bony mineralization and interosseous joint spaces. The carpal and adjacent articular bones have normal contours. The surrounding soft tissues are unremarkable. IMPRESSION: Unremarkable right wrist.
--- NOTE | 2017-11-01 11:16 | XRay Report ---
LEFT SHOULDER, 3 views: History: Left shoulder pain. Normal bone mineralization. Mild osteoarthritic changes are noted at the left shoulder. No evidence for fracture, dislocation or ligamentous injury. The soft tissues are unremarkable. IMPRESSION: Osteoarthritis. No acute injury is identified.
[2017-11-01 11:17] LABS: INR 0.9 (0.87-1.13)
[2017-11-01 11:18] LABS: Partial Thromboplastin Time 34.3 Sec. (24.2-36.6)
--- NOTE | 2017-11-01 11:26 | Cat Scan Report ---
CT SCAN OF THE CERVICAL SPINE: HISTORY: Fall. TECHNIQUE: Contiguous 1.25 mm axial images of the cervical spine were obtained. Sagittal and coronal reformatted images. FINDINGS: There is normal alignment of the cervical spine. The body, pedicles and posterior ligaments are intact. Degenerative changes and anterior fusion at C5-6 are noted. No evidence of fracture or subluxation is seen. The spinal canal appears normal. The prevertebral soft tissues appear normal. IMPRESSION: No acute process is noted.
--- NOTE | 2017-11-01 11:26 | Cat Scan Report ---
CT HEAD WITHOUT CONTRAST: HISTORY: Fall. TECHNIQUE: Sequential 2.5mm CT images. COMPARISON: none. FINDINGS: Cerebral Parenchyma: Within normal limits. Cerebellum: Within normal limits. Brainstem: Within normal limits. Ventricles: Normal. Sella: Normal. Extra-axial spaces: Normal. Basal Cisterns: Normal. Intracranial Hemorrhage: None. Midline Shift: None. Calvarium: Normal. Sinuses: Normal. Mastoid Air Cells: Normal. Visualized Orbits: Normal. IMPRESSION: Cranial CT scan within normal limits.
--- NOTE | 2017-11-01 11:36 | XRay Report ---
LEFT KNEE, 3 views: History: Knee pain. Moderate joint space narrowing is identified in the medial compartment. Mild retropatellar spurring. No evidence for fracture, bone lesion or joint effusion. IMPRESSION: Mild osteoarthritis.
[2017-11-01 13:00] VITALS: BP 124/64
== END 2017-11-01 13:12 | disposition home or self-care (01) ==
LOC: ED 09:32
DX: S83.92XA Sprain of unspecified site of left knee, initial encounter (principal); S80.02XA Contusion of left knee, initial encounter; M25.531 Pain in right wrist; M54.2 Cervicalgia; R51 Headache; M25.512 Pain in left shoulder; I10 Essential (primary) hypertension; E11.9 Type 2 diabetes mellitus without complications; K21.9 Gastro-esophageal reflux disease without esophagitis; M19.90 Unspecified osteoarthritis, unspecified site; J45.909 Unspecified asthma, uncomplicated; Z88.2 Allergy status to sulfonamides; Z91.010 Allergy to peanuts; Z91.013 Allergy to seafood; W01.0XXA Fall on same level from slipping, tripping and stumbling without subsequent striking against object, initial encounter; Y93.89 Activity, other specified; Y92.89 Other specified places as the place of occurrence of the external cause; Y99.8 Other external cause status
CPT/HCPCS: 29505; 36415; 70450; 72125; 73030; 73110; 73562; 80053; 85025; 85610; 85730; 96374; 96375; 99285; J2405; J3010

== ENCOUNTER 2018-03-02 22:22 | Emergency (ER) | payer OTHER | END 2018-03-03 04:27 | disposition left against medical advice (07) | LOC: ED 22:22 ==

== ENCOUNTER 2018-09-11 13:43 | Observation (INO) | payer OTHER ==
[2018-09-11] MEDS ORDERED: NITRO-BID 2% TP ONE (14:08)
[2018-09-11] MEDS ORDERED: ZOFRAN IV ONE (14:08)
[2018-09-11] MEDS ORDERED: SUBLIMAZE IV ONE (14:08)
[2018-09-11] MEDS ORDERED: ASPIRIN PO ONE (14:12)
--- NOTE | 2018-09-11 14:12 | Emergency Department Report ---
HPI - General Chief Complaint: Chest Pain Time Seen by Provider: 09/11/18 13:59 - HPI HPI: Room 6 The patient is a 53-year-old female presented with a chief complaint of chest pain. Patient states she developed left sided chest pain last night described as a burning/aching/tightness that has been intermittent. Patient also complains of intermittent tightness to the left shoulder patient states she has been short of breath and experienced diaphoresis with her chest pain but denies nausea/vomiting. Generally gives her chest tightness a score of 6/10. The patient states her last stress test occurred approximately 2 years ago but she's never had a cardiac catheterization Location: [See above] Duration: [See above] Quality: [See above] Severity: [See above] Modifying factors: [see above] Context: [see above] Mode of transportation: [not driving] ED Past Medical Hx - Past Medical History Hx Hypertension: Yes Hx Diabetes: Yes (A1C is 6.1) Hx GERD: Yes Hx Arthritis: Yes Hx Psychiatric Treatment: Yes (depression and anxiety) Hx Asthma: Yes Additional medical history: ulcers, recovering addict, palpitations - Surgical History Past Surgical History?: No Additional Surgical History: Bilateral hand surgery, right ankle surgery, C4-5 fusion, x1, LEFT SHOULDER, left knee surgery - Family History Family history: no significant - Social History Smoking Status: Never Smoker Substance Use Type: None - Medications Home Medications: Home Medications Medication Instructions Recorded Confirmed Last Taken Type Naproxen [Naprosyn TAB] 500 mg PO BID PRN #30 tablet 02/20/15 06/11/17 Unknown Rx ALBUTEROL Inhaler (OR & NICU) 2 puff IH QID PRN #1 inhalation 06/10/16 06/11/17 2 Days Ago Rx [ProAir HFA Inhaler] ~09/21/16 Albuterol Sulfate [Albuterol 0.63% 0.63 mg IH TID PRN #1 box 06/10/16 06/11/17 2 Days Ago Rx NEBS] ~09/21/16 Pantoprazole [Protonix] 40 mg PO QDAY #30 tablet 02/17/17 06/11/17 Unknown Rx Cetirizine HCl [Allergy Relief] 10 mg PO DAILY 06/11/17 06/11/17 Unknown History DULoxetine [Cymbalta] 60 mg PO QDAY 06/11/17 06/11/17 Unknown History Phentermine HCl [Adipex-P] 37.5 mg PO QAM 06/11/17 06/11/17 Unknown History Ondansetron [Zofran Odt] 4 mg PO Q8HR PRN #14 tab.rapdis 07/09/17 Unknown Rx traMADol [Ultram 50 MG tab] 50 mg PO Q4HR PRN #14 tablet 07/09/17 Unknown Rx Ibuprofen [Motrin] 800 mg PO Q8HR PRN #20 tablet 11/01/17 Unknown Rx traMADol [Ultram 50 MG tab] 50 mg PO Q8H PRN #6 tablet 11/01/17 Unknown Rx ED Review of Systems ROS: Stated complaint: CHEST PAIN/SOB Other details as noted in HPI Constitutional: diaphoresis Eyes: denies: eye pain ENT: denies: throat pain Respiratory: shortness of breath Cardiovascular: chest pain Endocrine: no symptoms reported Gastrointestinal: denies: nausea, vomiting Genitourinary: denies: dysuria Musculoskeletal: denies: back pain Skin: denies: lesions Neurological: denies: headache Physical Exam - Physical Exam Vital Signs: Vital Signs 09/11/18 13:58 Temperature 98.4 F Pulse Rate 70 Respiratory 16 Rate Blood Pressure 125/77 [Left] O2 Sat by Pulse 100 Oximetry Physical Exam: GENERAL: The patient is well-developed well-nourished female lying on stretcher not appearing to be in acute distress. [] HEENT: Normocephalic. Atraumatic. Extraocular motions are intact. Patient has moist mucous membranes. NECK: Supple. Trachea midline CHEST/LUNGS: Clear to auscultation. There is no respiratory distress noted. HEART/CARDIOVASCULAR: Regular. There is no tachycardia. There is no gallop rub or murmur. ABDOMEN: Abdomen is soft, nontender. Patient has normal bowel sounds. There is no abdominal distention. SKIN: There is no rash. There is no edema. There is no diaphoresis. NEURO: The patient is awake, alert, and oriented. The patient is cooperative. The patient has no focal neurologic deficits. The patient has normal speech MUSCULOSKELETAL: There is no evidence of acute injury. ED Course Vital Signs 09/11/18 13:58 Temperature 98.4 F Pulse Rate 70 Respiratory 16 Rate Blood Pressure 125/77 [Left] O2 Sat by Pulse 100 Oximetry ED Medical Decision Making - Lab Data Result diagrams: 09/11/18 14:25 09/11/18 14:25 Laboratory Tests 09/11/18 09/11/18 09/11/18 14:16 14:25 14:25 WBC 6.1 RBC 4.14 Hgb 11.2 Hct 34.8 MCV 84 MCH 27 L MCHC 32 RDW 16.4 H Plt Count 340 Lymph % (Auto) 47.1 H [place] % (Auto) 9.2 H Eos % (Auto) 5.8 H Baso % (Auto) 0.8 Lymph # 2.9 [place] # 0.6 Eos # 0.3 Baso # 0.0 Seg Neutrophils % 37.1 L Seg Neutrophils # 2.3 PT 13.2 INR 1.03 Sodium Potassium Chloride Carbon Dioxide Anion Gap BUN Creatinine Estimated GFR BUN/Creatinine Ratio Glucose Calcium Total Creatine Kinase CK-MB (CK-2) CK-MB (CK-2) Rel Index Troponin T Urine Opiates Screen Presumptive negative Urine Methadone Screen Presumptive negative Ur Barbiturates Screen Presumptive negative Ur Phencyclidine Scrn Presumptive negative Ur Amphetamines Screen Presumptive negative U Benzodiazepines Scrn Presumptive negative Urine Cocaine Screen Presumptive negative U Marijuana (THC) Screen Presumptive negative Drugs of Abuse Note Disclamer 09/11/18 14:25 WBC RBC Hgb Hct MCV MCH MCHC RDW Plt Count Lymph % (Auto) [place] % (Auto) Eos % (Auto) Baso % (Auto) Lymph # [place] # Eos # Baso # Seg Neutrophils % Seg Neutrophils # PT INR Sodium 140 Potassium 4.7 Chloride 101.0 Carbon Dioxide 30 Anion Gap 14 BUN 20 H Creatinine 1.1 Estimated GFR > 60 BUN/Creatinine Ratio 18 Glucose 95 Calcium 9.2 Total Creatine Kinase 102 CK-MB (CK-2) 1.4 CK-MB (CK-2) Rel Index 1.3 Troponin T < 0.010 Urine Opiates Screen Urine Methadone Screen Ur Barbiturates Screen Ur Phencyclidine Scrn Ur Amphetamines Screen U Benzodiazepines Scrn Urine Cocaine Screen U Marijuana (THC) Screen Drugs of Abuse Note - EKG Data -: EKG Interpreted by Nv EKG shows normal: sinus rhythm Rate: normal - EKG Data When compared to previous EKG there are: no significant change Interpretation: unchanged when compared t (02/17/2017) - Radiology Data Radiology results: report reviewed (chest x-ray), image reviewed (chest x-ray) interpreted by me: Chest x-ray-no focal infiltrates, no pneumothorax [facility] [address] [place] [address] XRay Report Signed Patient: FILIBERTO COPELAND MR#: [id number] : 1965 Acct:[id number] Age/Sex: 53 / F ADM Date: 09/11/18 Loc: ED Attending Dr: Ordering Physician: QUIN BROOKS MD Date of Service: 09/11/18 Procedure(s): XR chest 1V ap Accession Number(s): [id number] cc: QUIN BROOKS MD Fluoro Time In Minutes: CHEST 1 VIEW INDICATION: chest pain. COMPARISON: 02/17/2017 FINDINGS: Support devices: None. Heart: Normal. Pulmonary vasculature: Normal. Lungs/Pleura: No acute air space or interstitial disease. Additional findings: None. IMPRESSION: No acute cardiopulmonary process. Signer Name: Raul Aiken MD Signed: 09/11/2018 2:32 PM Workstation Name: [id number] Transcribed By: REF Dictated By: RAUL AIKEN MD Electronically Authenticated By: RAUL AIKEN MD Signed Date/Time: 09/11/18 1432 DD/ 1431 TD/TT: - Differential Diagnosis ACS, pericarditis, GERD Critical care attestation.: If time is entered above; I have spent that time in minutes in the direct care of this critically ill patient, excluding procedure time. ED Disposition Clinical Impression: Chest pain Disposition: OP ADMIT IP TO THIS HOSP Is pt being admited?: Yes Does the pt Need Aspirin: Yes Condition: Fair Instructions: Chest Pain (ED) Referrals: BENSON CHAVEZ MD [Primary Care Provider] - 3-5 Days Time of Disposition: 14:56 (hospitalist paged (Dr Olea))
[2018-09-11 14:36] LABS: Basophils % (Auto) 0.8 % (0.0-1.8); Eosinophils # (Auto) 0.3 K/mm3 (0.0-0.4); Eosinophils % (Auto) 5.8 % (0.0-4.3); Hematocrit 34.8 % (30.3-42.9); Hemoglobin 11.2 gm/dl (10.1-14.3); Lymphocytes # (Auto) 2.9 K/mm3 (1.2-5.4); Lymphocytes % (Auto) 47.1 % (13.4-35.0); Mean Corpuscular HGB Conc 32 % (30-34); Mean Corpuscular Volume 84 fl (79-97); Monocytes # (Auto) 0.6 K/mm3 (0.0-0.8); Monocytes % (Auto) 9.2 % (0.0-7.3); Platelet Count 340 K/mm3 (140-440); Red Blood Count 4.14 M/mm3 (3.65-5.03); Red Cell Distribution Width 16.4 % (13.2-15.2)
--- NOTE | 2018-09-11 14:36 | XRay Report ---
CHEST 1 VIEW INDICATION: chest pain. COMPARISON: 02/17/2017 FINDINGS: Support devices: None. Heart: Normal. Pulmonary vasculature: Normal. Lungs/Pleura: No acute air space or interstitial disease. Additional findings: None. IMPRESSION: No acute cardiopulmonary process. Signer Name: Javier Benítez MD Signed: 09/11/2018 2:32 PM Workstation Name: [id number]
[2018-09-11 14:40] LABS: Amphetamine Screen,Urine PRESUMPTIVE NEGATIVE; Benzodiazepines Screen,Urine PRESUMPTIVE NEGATIVE; Cannabinoid Screen,Urine PRESUMPTIVE NEGATIVE; Cocaine Screen,Urine PRESUMPTIVE NEGATIVE; Methadone Screen,Urine PRESUMPTIVE NEGATIVE; Opiate Screen,Urine PRESUMPTIVE NEGATIVE
[2018-09-11 14:47] LABS: INR 1.03 (0.87-1.13)
[2018-09-11 14:54] LABS: Creatine Kinase MB 1.4 ng/mL (0.0-4.0)
[2018-09-11 14:55] LABS: BUN/Creatinine Ratio 18; Blood Urea Nitrogen 20 mg/dL (7-17); Calcium 9.2 mg/dL (8.4-10.2); Hemolysis Index 0
--- NOTE | 2018-09-11 19:31 | History and Physical Report ---
History of Present Illness Date of examination: 09/11/18 Date of admission: 09/11/18 14:57 Chief complaint: Chest tightness since last night History of present illness: 52-year-old -[place] female with history of asthma, GERD, depression, chronic pain comes in for left-sided chest pain since last night. Chest pain is intermittent and a feeling of tightness on the left side with radiation to the left shoulder. Associated with some shortness of breath and diaphoresis. No nausea or vomiting. No palpitation. The pain is about 6 on a scale of 1-10. Patient had a stress test about 2 years ago but never had a cardiac cath. Not on aspirin or a blood pressure medicine. The patient is a 53-year-old female presented with a chief complaint of chest pain. Patient states she developed left sided chest pain last night described as a burning/aching/tightness that has been intermittent. Patient also complains of intermittent tightness to the left shoulder patient states she has been short of breath and experienced diaphoresis with her chest pain but denies nausea/vomiting. Generally gives her chest tightness a score of 6/10. The patient states her last stress test occurred approximately 2 years ago but she's never had a cardiac catheterization. No recent travel. No fever or chills. Past Medical History Hypertension: Yes Diabetes: Yes (A1C is 6.1) GERD: Arthritis Psychiatric Treatment: Yes (depression and anxiety) Asthma Additional medical history: ulcers, recovering addict, palpitations Surgical History Bilateral hand surgery right ankle surgery, C4-5 fusion, x1, LEFT SHOULDER and left knee surgery Family History HTN Social History Smoking Status: Never Smoker Substance Use Type: None Medications Home Medications: Home Medications Medication Instructions Recorded Confirmed Last Taken Type Naproxen [Naprosyn TAB] 500 mg PO BID PRN #30 tablet 02/20/15 06/11/17 Unknown Rx ALBUTEROL Inhaler (OR & NICU) 2 puff IH QID PRN #1 inhalation 06/10/16 06/11/17 2 Days Ago Rx [ProAir HFA Inhaler] ~09/21/16 Albuterol Sulfate [Albuterol 0.63% 0.63 mg IH TID PRN #1 box 06/10/16 06/11/17 2 Days Ago Rx NEBS] ~09/21/16 Pantoprazole [Protonix] 40 mg PO QDAY #30 tablet 02/17/17 06/11/17 Unknown Rx Cetirizine HCl [Allergy Relief] 10 mg PO DAILY 06/11/17 06/11/17 Unknown History DULoxetine [Cymbalta] 60 mg PO QDAY 06/11/17 06/11/17 Unknown History Phentermine HCl [Adipex-P] 37.5 mg PO QAM 06/11/17 06/11/17 Unknown History Ondansetron [Zofran Odt] 4 mg PO Q8HR PRN #14 tab.rapdis 07/09/17 Unknown Rx traMADol [Ultram 50 MG tab] 50 mg PO Q4HR PRN #14 tablet 07/09/17 Unknown Rx Ibuprofen [Motrin] 800 mg PO Q8HR PRN #20 tablet 11/01/17 Unknown Rx traMADol [Ultram 50 MG tab] 50 mg PO Q8H PRN #6 tablet 11/01/17 Unknown Rx Review of Systems ROS: Stated complaint: CHEST PAIN/SOB Other details as noted in HPI Constitutional: diaphoresis Eyes: denies: eye pain ENT: denies: throat pain Respiratory: shortness of breath Cardiovascular: chest pain Endocrine: no symptoms reported Gastrointestinal: denies: nausea, vomiting Genitourinary: denies: dysuria Musculoskeletal: denies: back pain Skin: denies: lesions Neurological: denies: headache 14 point review of systems done and otherwise negative Medications and Allergies Allergies Allergy/AdvReac Type Severity Reaction Status Date / Time peanut Allergy Rash Verified 07/09/17 12:03 shellfish derived Allergy Hives Verified 07/09/17 12:03 Sulfa (Sulfonamide Allergy Rash Verified 07/09/17 12:03 Antibiotics) Home Medications Medication Instructions Recorded Confirmed Last Taken Type Cetirizine HCl [Allergy Relief] 10 mg PO DAILY 06/11/17 09/11/18 09/11/18 History Ergocalciferol (Vitamin D2) 50,000 unit PO QWEEK 09/11/18 09/11/18 09/11/18 History [Vitamin D2] Escitalopram [Lexapro] 10 mg PO DAILY 09/11/18 09/11/18 09/11/18 History Furosemide [Lasix TAB] 40 mg PO DAILY 09/11/18 09/11/18 09/11/18 History Ketorolac Tromethamine [Acular 1 drop OU QID 09/11/18 09/11/18 09/11/18 History 0.5% Opth Soln] Latanoprost 0.005% [Xalatan 0.005%] 1 drop OU QPM 09/11/18 09/11/18 09/11/18 History Pantoprazole [Protonix] 40 mg PO DAILY 09/11/18 09/11/18 09/11/18 History Potassium Chloride [K-Dur] 20 meq PO DAILY 09/11/18 09/11/18 09/11/18 History risperiDONE [RisperDAL] 0.25 mg PO BID 09/11/18 09/11/18 Unknown History Exam - Constitutional Vitals: Temp Pulse Resp BP Pulse Ox 98.4 F 60 14 129/57 100 09/11/18 13:58 09/11/18 17:45 09/11/18 15:31 09/11/18 15:31 09/11/18 15:31 General appearance: Present: no acute distress, well-nourished - EENT Eyes: Present: PERRL ENT: hearing intact, clear oral mucosa - Neck Neck: Present: supple, normal ROM - Respiratory Respiratory effort: normal Respiratory: bilateral: CTA - Cardiovascular Heart rate: 68 Rhythm: regular Heart Sounds: Present: S1 & S2. Absent: rub, click - Extremities Extremities: no ischemia, pulses symmetrical, No edema Peripheral Pulses: within normal limits - Abdominal General gastrointestinal: Present: soft, non-tender, non-distended, normal bowel sounds Female genitourinary: Present: normal - Integumentary Integumentary: Present: clear, warm, dry - Musculoskeletal Musculoskeletal: gait normal, strength equal bilaterally - Psychiatric Psychiatric: appropriate mood/affect, intact judgment & insight - Neurologic Neurologic: CNII-XII intact, moves all extremities - Allied Health Allied health notes reviewed: nursing, case management Results - Labs CBC & Chem 7: 09/11/18 14:25 09/11/18 14:25 Labs: Laboratory Last Values WBC 6.1 K/mm3 (4.5-11.0) 09/11/18 14:25 RBC 4.14 M/mm3 (3.65-5.03) 09/11/18 14:25 Hgb 11.2 gm/dl (10.1-14.3) 09/11/18 14:25 Hct 34.8 % (30.3-42.9) 09/11/18 14:25 MCV 84 fl (79-97) 09/11/18 14:25 MCH 27 pg (28-32) L 09/11/18 14:25 MCHC 32 % (30-34) 09/11/18 14:25 RDW 16.4 % (13.2-15.2) H 09/11/18 14:25 Plt Count 340 K/mm3 (140-440) 09/11/18 14:25 Lymph % (Auto) 47.1 % (13.4-35.0) H 09/11/18 14:25 [place] % (Auto) 9.2 % (0.0-7.3) H 09/11/18 14:25 Eos % (Auto) 5.8 % (0.0-4.3) H 09/11/18 14:25 Baso % (Auto) 0.8 % (0.0-1.8) 09/11/18 14:25 Lymph # 2.9 K/mm3 (1.2-5.4) 09/11/18 14:25 [place] # 0.6 K/mm3 (0.0-0.8) 09/11/18 14:25 Eos # 0.3 K/mm3 (0.0-0.4) 09/11/18 14:25 Baso # 0.0 K/mm3 (0.0-0.1) 09/11/18 14:25 Seg Neutrophils % 37.1 % (40.0-70.0) L 09/11/18 14:25 Seg Neutrophils # 2.3 K/mm3 (1.8-7.7) 09/11/18 14:25 PT 13.2 Sec. (12.2-14.9) 09/11/18 14:25 INR 1.03 (0.87-1.13) 09/11/18 14:25 Sodium 140 mmol/L (137-145) 09/11/18 14:25 Potassium 4.7 mmol/L (3.6-5.0) 09/11/18 14:25 Chloride 101.0 mmol/L (98-107) 09/11/18 14:25 Carbon Dioxide 30 mmol/L (22-30) 09/11/18 14:25 14 mmol/L 09/11/18 14:25 BUN 20 mg/dL (7-17) H 09/11/18 14:25 1.1 mg/dL (0.7-1.2) 09/11/18 14:25 Estimated GFR > 60 ml/min 09/11/18 14:25 18 % 09/11/18 14:25 Glucose 95 mg/dL (65-100) 09/11/18 14:25 Calcium 9.2 mg/dL (8.4-10.2) 09/11/18 14:25 102 units/L (30-135) 09/11/18 14:25 CK-MB (CK-2) 1.4 ng/mL (0.0-4.0) 09/11/18 14:25 CK-MB (CK-2) Rel Index 1.3 (0-4) 09/11/18 14:25 < 0.010 ng/mL (0.00-0.029) 09/11/18 14:25 Presumptive negative 09/11/18 14:16 Presumptive negative 09/11/18 14:16 Ur Barbiturates Screen Presumptive negative 09/11/18 14:16 Ur Phencyclidine Scrn Presumptive negative 09/11/18 14:16 Ur Amphetamines Screen Presumptive negative 09/11/18 14:16 U Benzodiazepines Scrn Presumptive negative 09/11/18 14:16 Presumptive negative 09/11/18 14:16 U Marijuana (THC) Screen Presumptive negative 09/11/18 14:16 Disclamer 09/11/18 14:16 Short CBC 09/11/18 Range/Units 14:25 WBC 6.1 (4.5-11.0) K/mm3 Hgb 11.2 (10.1-14.3) gm/dl Hct 34.8 (30.3-42.9) % Plt Count 340 (140-440) K/mm3 BMP 09/11/18 14:25 Sodium 140 Potassium 4.7 Chloride 101.0 Carbon Dioxide 30 BUN 20 H Creatinine 1.1 Glucose 95 Calcium 9.2 Cardiac Enzymes 09/11/18 Range/Units 14:25 Total Creatine Kinase 102 (30-135) units/L CK-MB (CK-2) 1.4 (0.0-4.0) ng/mL Troponin T < 0.010 (0.00-0.029) ng/mL - Imaging and Cardiology EKG: report reviewed (normal sinus rhythm heart rate of 68/m) Chest x-ray: report reviewed (no acute findings) Assessment and Plan Advance Directives: Yes (full code) VTE prophylaxis?: Chemical Plan of care discussed with patient/family: Yes - Patient Problems (1) Chest pain Current Visit: Yes Status: Acute (2) Chest pain Current Visit: Yes Status: Acute Qualifiers: Chest pain type: unspecified Qualified Code(s): R07.9 - Chest pain, unspecified Plan to address problem: Chest pain rule out [place] protocol Serial troponins Lexiscan in the morning Costochondritis and GERD in the differential diagnosis No chest wall tenderness (3) Asthma Current Visit: Yes Status: Inactive Qualifiers: Asthma persistence: unspecified Plan to address problem: Continue albuterol inhaler and nebulizers on when necessary basis (4) GERD (gastroesophageal reflux disease) Current Visit: Yes Status: Chronic Qualifiers: Esophagitis presence: without esophagitis Qualified Code(s): K21.9 - Gastro-esophageal reflux disease without esophagitis Plan to address problem: Continue Protonix (5) Depression Current Visit: Yes Status: Chronic Qualifiers: Depression Type: unspecified Qualified Code(s): F32.9 - Major depressive disorder, single episode, unspecified Plan to address problem: Continue Cymbalta (6) Chronic pain Current Visit: Yes Status: Chronic Qualifiers: Chronic pain type: chronic pain syndrome Qualified Code(s): G89.4 - Chronic pain syndrome Plan to address problem: Continue tramadol and ibuprofen (7) DVT prophylaxis Current Visit: Yes Status: Acute Plan to address problem: On Lovenox and GI prophylaxis
[2018-09-11] MEDS ORDERED: ZOFRAN IV PRN (20:24)
[2018-09-11] MEDS ORDERED: SODIUM CHLORIDE FLUSH SYRINGE 10 ML IV PRN (20:24)
[2018-09-11] MEDS ORDERED: PERCOCET 5/325 PO PRN (20:24)
[2018-09-11] MEDS ORDERED: TYLENOL PO PRN (20:24)
[2018-09-11] MEDS ORDERED: DILAUDID IV PRN (20:24)
[2018-09-11] MEDS ORDERED: NON-FORMULARY (Cetirizine Hcl [Allergy Relief] 10 MG) PO SCH (20:30)
[2018-09-11] MEDS: LEXAPRO PO SCH (21:25)
[2018-09-11] MEDS: CLARITIN PO SCH (21:26)
[2018-09-11] MEDS: RisperDAL PO SCH (21:26)
[2018-09-11] MEDS: SODIUM CHLORIDE FLUSH SYRINGE 10 ML IV SCH (21:29)
[2018-09-11] MEDS ORDERED: KETOROLAC TROMETHAMINE OU SCH (22:00)
[2018-09-12 05:36] LABS: Hematocrit 33.1 % (30.3-42.9); Hemoglobin 10.8 gm/dl (10.1-14.3); Mean Corpuscular HGB Conc 33 % (30-34); Mean Corpuscular Volume 84 fl (79-97); Platelet Count 340 K/mm3 (140-440); Red Blood Count 3.92 M/mm3 (3.65-5.03)
[2018-09-12] MEDS ORDERED: LASIX PO SCH (06:00)
[2018-09-12 06:01] LABS: Alanine Aminotransferase 10 units/L (7-56); BUN/Creatinine Ratio 18; Blood Urea Nitrogen 18 mg/dL (7-17); Calcium 9.3 mg/dL (8.4-10.2); Hemolysis Index 0
[2018-09-12 06:30] LABS: Anisocytosis 1+; Basophils % (Manual) 0 % (0.0-1.8); Poikilocytosis Few; Total Cells Counted 100
[2018-09-12 06:31] LABS: Platelet Estimate Consistent w Auto
[2018-09-12] MEDS: DUONEB *Not for PRN Use IH SCH ×2 (09:31→15:11)
[2018-09-12] MEDS ORDERED: LOVENOX SUB-Q SCH (10:00)
[2018-09-12] MEDS ORDERED: K-DUR PO SCH (10:00)
[2018-09-12] MEDS ORDERED: PROTONIX PO SCH (10:00)
[2018-09-12] MEDS ORDERED: LEXISCAN IV ONE ×2 (10:32)
[2018-09-12 11:32] VITALS: BP 129/55
--- NOTE | 2018-09-12 15:19 | Discharge Summary ---
Providers - Providers Date of Admission: 09/11/18 14:57 Date of discharge: 09/12/18 Attending physician: PIERO TILLMAN Primary care physician: BENSON CHAVEZ Hospitalization Reason for admission: Acute Chest pain, rule out ACS Condition: Stable Pertinent studies: Stress test: Negative Procedures: None Hospital course: Final discharge diagnosis: Acute chest pain probably due to GERD Asthma GERD (gastroesophageal reflux disease) Depression without suicidal ideation Morbid obesity with BMI of 48.9 Hospital course: Pt was admitted and placed on chest pain pathway. Serial troponin levels done were negative. For her other comorbidities, she was continued on her home medications in addition to neb breathing tx. Subsequently, she underwent stress test, which was reported as negative for acute ischemia. Thereafter, she was deemed stable for discharge. Disposition: TO HOME OR SELFCARE Time spent for discharge: 30 minutes Core Measure Documentation - Palliative Care Palliative Care/ Comfort Measures: Not Applicable - Core Measures Any of the following diagnoses?: none Exam - Constitutional Vitals: Temp Pulse Resp BP Pulse Ox 97.9 F 55 L 19 129/55 96 09/12/18 08:10 09/12/18 09:20 09/12/18 09:20 09/12/18 11:00 09/12/18 08:10 General appearance: Present: no acute distress, obese - EENT Eyes: Present: PERRL, EOM intact ENT: hearing intact, clear oral mucosa - Neck Neck: Present: supple, normal ROM - Respiratory Respiratory effort: normal Respiratory: bilateral: CTA - Cardiovascular Rhythm: regular Heart Sounds: Present: S1 & S2. Absent: rub, click - Extremities Extremities: pulses symmetrical, No edema Peripheral Pulses: within normal limits - Abdominal General gastrointestinal: Present: soft, non-tender, non-distended, normal bowel sounds Female genitourinary: Present: deferred - Integumentary Integumentary: Present: clear, warm, dry - Musculoskeletal Musculoskeletal: gait normal, strength equal bilaterally - Psychiatric Psychiatric: appropriate mood/affect, intact judgment & insight - Neurologic Neurologic: CNII-XII intact, moves all extremities Plan Follow up with: BENSON CHAVEZ MD [Primary Care Provider] - 3-5 Days
[2018-09-12] MEDS: LEXAPRO PO SCH (15:32)
[2018-09-12] MEDS: RisperDAL PO SCH (15:33)
[2018-09-12] MEDS: CLARITIN PO SCH (15:33)
[2018-09-12] MEDS: SODIUM CHLORIDE FLUSH SYRINGE 10 ML IV SCH (15:34)
[2018-09-12] MEDS ORDERED: LATANOPROST 0.005% OU SCH (18:00)
--- NOTE | 2018-09-12 21:33 | Treadmill Report ---
INDICATION: Shortness of breath and chest pain. ORDERING PHYSICIAN: Dr. Mable Olea. FINDINGS: There is no scintigraphic evidence of myocardial ischemia. The left ventricle is normal in size. The left ventricular ejection fraction is normal, measured at 61%. Normal wall motion and wall thickening is noted on gated imaging. CONCLUSION: Normal perfusion scan. JOB# [id number] AKMelissa/NTS
== END 2018-09-12 16:58 | disposition home or self-care (01) ==
LOC: ED 13:43 → 4A 14:57 → INTOOBSV 14:57
PROVIDERS: ADMIT Internal Medicine; ATTEND Internal Medicine
DX: R07.89 Other chest pain (principal); J45.909 Unspecified asthma, uncomplicated; K21.9 Gastro-esophageal reflux disease without esophagitis; F32.9 Major depressive disorder, single episode, unspecified; G89.29 Other chronic pain
CPT/HCPCS: 36415; 71045; 78452; 80048; 80053; 80307; 82550; 82553; 84484; 85007; 85025; 85610; 87116; 93005; 93010; 93017; 94640; 94760; 96372; 96374; 99284; A9502; G0378; J1650; J2405; J2785; J3010

== ENCOUNTER 2018-12-04 15:47 | Emergency (ER) | payer OTHER ==
[2018-12-04 16:37] VITALS: BP 152/50
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
--- NOTE | 2018-12-04 17:38 | XRay Report ---
CERVICAL SPINE 4 VIEWS INDICATION: Neck pain. COMPARISON: No relevant prior imaging study available. FINDINGS: VERTEBRAE: No acute fracture. Normal alignment. DISC SPACES: C5 and C6 are fused anteriorly. There is moderate discogenic degenerative change at C4-C 5. No additional significant abnormality. FACET JOINTS: No significant abnormality. SOFT TISSUES: No significant abnormality. ADDITIONAL FINDINGS: No additional significant findings. IMPRESSION: 1. No acute findings. 2. Cervical spondylosis as above. Signer Name: Arnulfo Nieves MD Signed: 12/04/2018 5:33 PM Workstation Name: [id number]
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
== END 2018-12-04 18:30 | disposition home or self-care (01) ==
LOC: ED 15:47
DX: S16.1XXA Strain of muscle, fascia and tendon at neck level, initial encounter (principal); S80.02XA Contusion of left knee, initial encounter; V49.49XA Driver injured in collision with other motor vehicles in traffic accident, initial encounter; Y93.89 Activity, other specified; Y92.488 Other paved roadways as the place of occurrence of the external cause; Y99.8 Other external cause status
CPT/HCPCS: 72040

== ENCOUNTER 2019-10-07 11:22 | Emergency (ER) | payer MEDICARE ==
[2019-10-07] MEDS ORDERED: IPRATROPIUM 0.02% NEBU 2.5 ML IH ONE (11:30)
[2019-10-07] MEDS ORDERED: ALBUTEROL 2.5 MG/3 ML NEBU IH ONE ×3 (11:30→11:38)
[2019-10-07] MEDS ORDERED: methylPREDNISolone Sod Succinate 125 MG/2 ML INJ ONE (11:35)
[2019-10-07] MEDS ORDERED: MAGNESIUM SULFATE 2 GM/50 ML BAG IV ONE ×2 (11:38→11:39)
[2019-10-07] MEDS ORDERED: methylPREDNISolone Sod Succinate 125 MG/2 ML INJ IV ONE (11:41)
--- NOTE | 2019-10-07 11:48 | Emergency Department Report ---
HPI - General Chief Complaint: Adult Asthma Time Seen by Provider: 10/07/19 11:29 - HPI HPI: Room 19 Patient is a 54-year-old female present with a chief complaint of shortness of breath. Patient has a history of asthma and states for the past week and a half she has had worsening shortness of breath. Patient denies history of fever but states today she developed a cough that was nonproductive. Patient states her symptoms feel consistent with her asthma. ED Past Medical Hx - Past Medical History Hx Hypertension: Yes Hx GERD: Yes Hx Arthritis: Yes Hx Psychiatric Treatment: Yes (depression and anxiety) Hx Asthma: Yes Additional medical history: ulcers, recovering addict, palpitations - Surgical History Additional Surgical History: Bilateral hand surgery, right ankle surgery, C4-5 fusion, x1, LEFT SHOULDER, left knee surgery - Family History Family history: no significant - Social History Smoking Status: Former Smoker (None x4-year) - Medications Home Medications: Home Medications Medication Instructions Recorded Confirmed Last Taken Type Cetirizine HCl [Allergy Relief] 10 mg PO DAILY 06/11/17 07/17/19 09/11/18 History Ergocalciferol (Vitamin D2) 50,000 unit PO QWEEK 09/11/18 07/17/19 09/11/18 History [Vitamin D2] Escitalopram [Lexapro] 10 mg PO DAILY 09/11/18 07/17/19 09/11/18 History Furosemide [Lasix TAB] 40 mg PO DAILY 09/11/18 07/17/19 09/11/18 History Ketorolac Tromethamine [Acular 1 drop OU QID 09/11/18 07/17/19 09/11/18 History 0.5% Opth Soln] Latanoprost 0.005% 1 drop OU QPM 09/11/18 07/17/19 09/11/18 History Pantoprazole [Protonix TAB] 40 mg PO DAILY 09/11/18 07/17/19 09/11/18 History Potassium Chloride [K-Dur] 20 meq PO DAILY 09/11/18 07/17/19 09/11/18 History risperiDONE [RisperDAL] 0.25 mg PO BID 09/11/18 07/17/19 Unknown History Ibuprofen [Motrin 800 MG tab] 800 mg PO Q8HR PRN #14 tablet 12/04/18 07/17/19 Un known Rx methOCARBAMOL [Robaxin TAB] 500 mg PO Q6H PRN #14 tablet 12/04/18 07/17/19 Unknown Rx traMADoL [Ultram 50 MG tab] 50 mg PO Q6HR PRN #12 tablet 12/04/18 07/17/19 Unknown Rx Azithromycin [Zithromax Z-JENNIFER] 0 mg PO DAILY #1 tab 07/17/19 Unknown Rx Fluticasone/Salmeterol [Advair 1 puff IH BID #1 disk.w.dev 07/17/19 Unknown Rx Diskus 250-50 mcg] Prednisone [predniSONE 10 mg 10 mg PO .TAPER #1 tab.ds.pk 07/17/19 Unknown Rx (6-Day Pack, 21 Tabs)] Prednisone [predniSONE 10 mg 10 mg PO .TAPER #1 tab.ds.pk 10/07/19 Unknown Rx (6-Day Pack, 21 Tabs)] ED Review of Systems ROS: Stated complaint: SOB Other details as noted in HPI Constitutional: denies: fever Respiratory: cough, shortness of breath, wheezing Cardiovascular: denies: chest pain Endocrine: no symptoms reported Physical Exam - Physical Exam Vital Signs: Vital Signs 10/07/19 11:26 Temperature 98.4 F Pulse Rate 109 H Respiratory 24 Rate Blood Pressure 196/79 O2 Sat by Pulse 98 Oximetry Physical Exam: GENERAL: The patient is well-developed well-nourished female lying on stretcher exhibiting increased work of breathing HEENT: Normocephalic. Atraumatic. Extraocular motions are intact. Patient has moist mucous membranes. NECK: Supple. Trachea midline CHEST/LUNGS: Diffuse wheezing. There is accessory muscle use HEART/CARDIOVASCULAR: Regular. There is no tachycardia. There is no gallop rub or murmur. ABDOMEN: Abdomen is soft, nontender. Patient has normal bowel sounds. There is no abdominal distention. SKIN: There is no rash. There is no diaphoresis. NEURO: The patient is awake, alert, and oriented. The patient is cooperative. The patient has no focal neurologic deficits. The patient has normal speech MUSCULOSKELETAL: There is no evidence of acute injury. ED Course Vital Signs 10/07/19 11:26 Temperature 98.4 F Pulse Rate 109 H Respiratory 24 Rate Blood Pressure 196/79 O2 Sat by Pulse 98 Oximetry - Reevaluation(s) Reevaluation #1: 10/07/19 14:50 Patient improved. Lungs clear to auscultation bilaterally. Patient states she feels good and is comfortable going home ED Medical Decision Making - Radiology Data Radiology results: report reviewed (Chest x-ray), image reviewed (Chest x-ray) interpreted by me: Chest x-ray-no focal infiltrates, no pneumothorax Findings [facility] [address] [place] [address] XRay Report Signed Patient: FILIBERTO COPELAND MR#: [id number] : 1965 Acct:[id number] Age/Sex: 54 / F ADM Date: 10/07/19 Loc: ED Attending Dr: Ordering Physician: QUIN BROOKS MD Date of Service: 10/07/19 Procedure(s): XR chest 1V ap Accession Number(s): [id number] cc: QUIN BROOKS MD Fluoro Time In Minutes: CHEST 1 VIEW INDICATION / CLINICAL INFORMATION: Shortness of breath. FINDINGS: SUPPORT DEVICES: None. HEART / MEDIASTINUM: No significant abnormality. LUNGS / PLEURA: No significant pulmonary or pleural abnormality. No pneumothorax. ADDITIONAL FINDINGS: No significant additional findings. IMPRESSION: 1. No acute findings. Signer Name: Raj Moore MD Signed: 10/07/2019 12:08 PM Workstation Name: [id number] Transcribed By: BC Dictated By: Raj Moore MD Electronically Authenticated By: Raj Moore MD Signed Date/Time: 10/07/19 120 DD/ 07 TD/TT: - Differential Diagnosis Acute asthma exacerbation Critical care attestation.: If time is entered above; I have spent that time in minutes in the direct care of this critically ill patient, excluding procedure time. ED Disposition Clinical Impression: Acute asthma exacerbation, Shortness of breath Disposition: DC-01 TO HOME OR SELFCARE Is pt being admited?: No Does the pt Need Aspirin: No Condition: Stable Instructions: Asthma (ED) Additional Instructions: Return to the emergency department should you develop worsening symptoms, inability to tolerate food or liquids, high fever or any other concerns Prescriptions: Prednisone [predniSONE 10 mg (6-Day Pack, 21 Tabs)] 10 mg PO .TAPER #1 tab.ds.pk Referrals: MARQUISE BROWN MD [Primary Care Provider] - 3-5 Days Time of Disposition: 14:50
--- NOTE | 2019-10-07 12:13 | XRay Report ---
CHEST 1 VIEW INDICATION / CLINICAL INFORMATION: Shortness of breath. FINDINGS: SUPPORT DEVICES: None. HEART / MEDIASTINUM: No significant abnormality. LUNGS / PLEURA: No significant pulmonary or pleural abnormality. No pneumothorax. ADDITIONAL FINDINGS: No significant additional findings. IMPRESSION: 1. No acute findings. Signer Name: Raj Moore MD Signed: 10/07/2019 12:08 PM Workstation Name: [id number]
[2019-10-07 15:34] VITALS: BP 127/70
== END 2019-10-07 15:46 | disposition home or self-care (01) ==
LOC: ED 11:22
DX: J45.901 Unspecified asthma with (acute) exacerbation (principal); I10 Essential (primary) hypertension; E11.9 Type 2 diabetes mellitus without complications; M19.90 Unspecified osteoarthritis, unspecified site; K21.9 Gastro-esophageal reflux disease without esophagitis; F41.9 Anxiety disorder, unspecified; F32.9 Major depressive disorder, single episode, unspecified; Z79.899 Other long term (current) drug therapy; Z87.891 Personal history of nicotine dependence; Z98.890 Other specified postprocedural states
CPT/HCPCS: 71045; 94640; 96365; 96375; 99283; J2930; J3475; 94644

== ENCOUNTER 2021-03-20 13:31 | Emergency (ER) | payer MEDICARE, MEDICAID | END 2021-03-20 23:29 | disposition home or self-care (01) | LOC: ED 13:31 | DX: R07.9 Chest pain, unspecified (principal); Z53.21 Procedure and treatment not carried out due to patient leaving prior to being seen by health care provider; R06.02 Shortness of breath ==